=== PATIENT | female | born 1945 | race Caucasian/White ===

== ENCOUNTER 2020-10-16 10:30 | Outpatient (REF) | payer MEDICARE, SELFPAY | END 2020-10-16 10:31 | disposition home or self-care (01) | LOC: HO.LAB 10:30 | PROVIDERS: Visit Provider Internal Medicine | DX: Z20.828 Contact with and (suspected) exposure to other viral communicable diseases (principal) | CPT/HCPCS: C9803; U0003 ==

== ENCOUNTER 2022-08-20 12:48 | Outpatient (REF) | payer MEDICARE, SELFPAY ==
--- NOTE | ~2022-08-20 | XR_ITS ---
EXAMINATION: XR CHEST CLINICAL INFORMATION: Dyspnea on exertion COMPARISON: Previous chest x-ray April [address] November 2018 TECHNIQUE: 2 views of the chest were obtained. FINDINGS: The cardiac and mediastinal contours are normal. There are symmetric nodular densities at both lung bases probably representing nipple shadows. The lungs are otherwise clear. No pleural effusion or pneumothorax. There are degenerative changes of the spine. XR/XR chest 2V IMPRESSION: Nodular densities at both lung bases probably representing nipple shadows. No evidence for acute disease in the chest.
== END 2022-08-20 12:49 | disposition home or self-care (01) ==
LOC: HO.XRAY 12:48
PROVIDERS: PCP Family Medicine; Visit Provider Family Medicine
DX: R06.09 Other forms of dyspnea (principal)
CPT/HCPCS: 71046

== ENCOUNTER 2022-08-26 09:12 | Outpatient (REF) | payer MEDICARE, SELFPAY ==
[2022-08-26 10:14] LABS: Appearance Urine Cloudy; Color Urine Yellow; Glucose Urine UA Negative (Negative); Leukocyte Esterase Urine Negative (Negative); Nitrite Urine Negative (Negative); PH 6.5 (5.0-9.0); Specific Gravity - Urine 1.015 (1.005-1.025); Urine Blood Negative (Negative); Urine Ketones Negative (Negative); Urine Protein Negative (Neg-Trace)
[2022-08-26 10:23] LABS: Bacteria Urine None Seen (None Seen); Hyaline Casts Urine 0-2 /LPF (0-2); RBC Urine 0-2 /HPF (0-2); Squamous Epithelial Cell Urine 0-2 /HPF (0-2); WBC Urine 0-5 /HPF (0-5)
[2022-08-26 10:44] LABS: Creatinine Urine 78.19 mg/dL; Total Protein Urine Random < 7 mg/dL (<12)
[2022-08-26 10:45] LABS: Erythrocyte Sedimentation Rate 6 MM/HR (0-20)
[2022-08-26 11:05] LABS: C Reactive Protein 0.26 mg/dL (< or = 0.50)
[2022-08-27 19:18] LABS: Complement C3 114 mg/dL (83-193)
[2022-08-27 21:42] LABS: Anti DNA DS Antibody 3 IU/mL; Antibody to SS-A Antigen <1.0 NEG AI (<1.0 NEG); Antibody to SS-B Antigen <1.0 NEG AI (<1.0 NEG); SM/Ribonucleoprotein Ab <1.0 NEG AI (<1.0 NEG); Smith Protein <1.0 NEG AI (<1.0 NEG)
[2022-08-28 12:12] LABS: Immunoglobulin G Subclass 1 486 mg/dL (382-929); Immunoglobulin G Subclass 2 314 mg/dL (241-700); Immunoglobulin G Subclass 3 36 mg/dL (22-178); Immunoglobulin G Subclass 4 40.8 mg/dL (4-86); Immunoglobulin G Total 828 mg/dL (600-1540)
[2022-08-28 14:37] LABS: IgA 215 mg/dL (70-320); IgG 934 mg/dL (600-1540); IgM 31 mg/dL (50-300)
[2022-08-31 13:41] LABS: Prot Elec - Albumin 4.5 g/dL (3.8-4.8); Prot Elec - Alpha1 0.3 g/dL (0.2-0.3); Prot Elec - Alpha2 0.8 g/dL (0.5-0.9); Prot Elec - Beta 1 0.5 g/dL (0.4-0.6); Prot Elec - Beta 2 0.3 g/dL (0.2-0.5); Prot Elec - Gamma 0.9 g/dL (0.8-1.7); Prot Elec - Total Protein 7.1 g/dL (6.1-8.1)
[2022-08-31 14:17] LABS: DNAds, Crithidia Antibody Negative (Negative)
[2022-09-03 17:25] LABS: Cryoglobulin, Qual NONE DETECTED ((NDT))
== END 2022-08-26 09:13 | disposition home or self-care (01) ==
LOC: HO.10HDL 09:12
PROVIDERS: Visit Provider Student in an Organized Health Care Education/Training Program
DX: R76.8 Other specified abnormal immunological findings in serum (principal); M35.00 Sjogren syndrome, unspecified; M81.0 Age-related osteoporosis without current pathological fracture; Z79.899 Other long term (current) drug therapy
CPT/HCPCS: 36415; 81001; 82595; 82784; 84156; 84165; 85652; 86140; 86160; 86225; 86235; 86255; 86334; 99202

== ENCOUNTER → 2022-09-03 14:29 | Outpatient (REF) | payer MEDICARE, SELFPAY ==
--- NOTE | 2022-09-03 15:00 | CA_ITS ---
Transthoracic Echocardiogram Patient (Last, First, Middle): Ángela Boland, Gender: Female Date of : 1945 Age: 76 Procedure Date: 09/03/2022 Procedure Type: Transthoracic Echocardiogram Location: OP Height: 162.56 cm Weight: 63.5 kg BSA: 1.68 m2 Heart Rate: 56 bpm Incident Response Consultant: JIMY Referring MD: Stacey May MD Symptoms: R06.09 DYSPNEA ON EXERTION Study Quality: Adequate w contrast ECG Rhythm: Bradycardia Conclusions: - The left ventricular systolic function is normal. The calculated ejection fraction is 70% by biplane method. - No obvious valvular pathology seen on this study. Findings Procedure Information Contrast agent, definity, is being given per protocol without apparent complications. Left Ventricle Normal left ventricular cavity size. There is normal left ventricular wall thickness. The left ventricular systolic function is normal. The calculated ejection fraction is 70% by biplane method. There is no evidence of regional wall motion abnormalities. Evidence suggests grade I (mild) diastolic dysfunction. Right Ventricle Normal right ventricular cavity size and systolic function. Atria Both atria are normal in size. Aortic Valve There is a normal trileaflet aortic valve. There is no aortic valve stenosis. There is no aortic valve regurgitation. Mitral Valve The mitral valve appears normal. There is trace mitral valve regurgitation. There is no mitral valve stenosis. Pulmonic Valve The pulmonic valve is likely normal. Tricuspid Valve Normal tricuspid valve structure. There is trace tricuspid valve regurgitation. There is no evidence of pulmonary hypertension. Great Vessels The asc aorta is normal in size. Venous The inferior vena cava is normal in size and collapses greater than 50% with inspiration. Pericardium/Pleural There is a trivial pericardial effusion. Prior Study Comparison No prior study available for comparison. Recommendations, Care & Conclusions No obvious valvular pathology seen on this study. Measurements 2D Linear Measurements IVSd: 0.73 0.6-0.9/0.6-1.0 cm LVIDd: 4.24 3.9-5.3/4.2-5.9 cm LVIDd Index: 2.52 2.4-3.2/2.2-3.1 cm/m2 LVIDs: 3.17 2.0-3.6 cm LVPWd: 0.57 0.7-1.1 cm LA Diam: 3.00 2.7-3.8/3.0-4.0 cm LAIDs Index: 1.79 1.5-2.3 cm/m2 LV Mass: 97.27 67-162/88-224 g LV Mass Index: 57.90 43-95/49-115 g/m2 LVOT Diam: 2.00 3.0+(-)1.3 cm 2D Systolic Function EF 4C: 65.90 >55% EF 2C: 73.10 >55% EF BiP: 69.80 >55% Mitral Valve MV Pk E: 0.84 MV PK A: 0.82 MV Decel Time: 171.00 E/A: 1.00 E'Lateral: 6.42 E'Medial: 5.33 E/E' Med: 15.80 E/E' Lat: 13.10 PHT: 50.00 MVA PHT: 4.40 Decel [place]: 4.92 Aortic Valve AoV Pk Benjamin: 1.42 AoV Mn Benjamin: 0.96 AoV VTI: 0.33 AoV Pk Grad: 8.00 Aov Mn Grad: 4.00 YEVGENIY Cont.VTI: 2.38 LVOT LVOT Pk Benjamin: 1.09 LVOT Mn Benjamin: 0.74 LVOT VTI: 0.25 LVOT Pk Grad: 5.00 LVOT Mn Grad: 2.00 LVOT Diam: 2.00 LVOT Area: 3.14 Diastolic Function MV Pk E: 0.84 MV Pk A: 0.82 E/A: 1.00 E'Medial: 5.33 E/E' Med: 15.80 E' Laterial: 6.42 E/E' Lat: 13.10 Right Ventricle TAPSE (mm): 19.10 TVS' Benjamin: 9.60 Tricuspid Valve TR Pk Benjamin: 2.23 TR Pk Grad: 20.00 RA Press: 3.00 RVSP: 23.00 Great Vessels Aorta Sinus of Valsalva: 2.70 2.0-3.5 cm Ao Asc: 2.70 2.1-3.4 cm Pulmonary Veins Pulm Vein S/D 1.50 Pulmonary Valve PV Pk Benjamin: 0.80 Peak PV Grad: 3.00 Updated in Other Vendor System with Status of Final Isaac Snyder MD electronically signed on 09/05/2022 9:03:48 AM with status of Final
== END ==
LOC: HO.CARD 14:29
PROVIDERS: PCP Family Medicine; Visit Provider Family Medicine
DX: R06.09 Other forms of dyspnea (principal)
CPT/HCPCS: 93306; Q9957

== ENCOUNTER 2022-10-05 12:42 | Outpatient (REF) | payer MEDICARE, SELFPAY | END 2022-10-05 12:43 | disposition home or self-care (01) | LOC: HO.10HDLNP 12:42 | PROVIDERS: Visit Provider Otolaryngology | DX: B37.9 Candidiasis, unspecified (principal) | CPT/HCPCS: 87102; 87106 ==

== ENCOUNTER → 2022-10-07 08:10 | Outpatient (BNVA) | payer MEDICARE, SELFPAY | PROVIDERS: PCP Family Medicine; Referring Provider Family Medicine; Visit Provider Student in an Organized Health Care Education/Training Program | DX: M35.00 Sjogren syndrome, unspecified (principal); J45.909 Unspecified asthma, uncomplicated | CPT/HCPCS: 99212 ==

== ENCOUNTER 2022-12-23 11:08 | Day surgery (SDC) | payer MEDICARE, SELFPAY ==
[2022-12-23 12:16] VITALS: BMI 24.1
[2022-12-23] MEDS: Lactated Ringers 1,000 ML 50 ML IVCONT (12:30)
[2022-12-23 12:32] VITALS: BP 154/74; PULSE 58; RESP 16; TEMP 36.6; O2SAT 100
--- NOTE | 2022-12-23 14:09 | P.CONAN_ITS ---
HPI - Anesthesia Eval Consult details Narrative: For colonoscopy [facility] Active Problems Active Problems: All Active Problems (Updated 12/22/22 @ 12:48 by Asha Min, RN) MAY positive (Acute) [place] (Acute) Asthma (Acute) Past Medical History Medical History (Updated 12/22/22 @ 12:48 by Asha Min, GRACE) Anxiety GERD (gastroesophageal reflux disease) Hypothyroidism Osteoporosis Narrative: Unremarkable echo 09/2022. Family History Family History Father Adenocarcinoma Mother No problems noted. 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 [employer] Allergies Allergy/AdvReac Type Severity Reaction Status Date / Time codeine [Codeine] AdvReac Unknown Dizziness Verified 12/23/22 12:58 sertraline [Zoloft] AdvReac Unknown bad mental Verified 12/23/22 12:58 reaction Active Medications: Current Medications Lactated Ringer's (Lr) 1,000 mls @ 50 mls/hr IVCONT .Q20H AALIYAH Last Admin: 12/23/22 12:30 Dose: 50 mls/hr Sodium Biphosphate/Sodium Phosphate (Sodium Phosphate,[place]-Dibasic 133 Ml Enema) 133 ml VA ONCE PRN PRN Reason: Poor Colonoscopy Prep Results Home Medications Medication Instructions Recorded Confirmed Last Taken Type alendronate 70 mg tablet 70 mg PO QWEEK 06/12/22 08/26/22 Unknown History cholecalciferol (vitamin D3) 25 25 mcg PO DAILY 06/12/22 08/26/22 Unknown History mcg (1,000 unit) capsule fluoxetine 20 mg capsule 20 mg PO DAILY 06/12/22 08/26/22 Unknown History levothyroxine 75 mcg tablet 75 mcg PO DAILY 06/12/22 08/26/22 Unknown History Exam Exam Date and Time: December 23, 2022 1409 Height,Weight and Vital Signs: Height 5 ft 5 in Weight 65.771 kg Last Vital Signs Temp 97.9 F 12/23/22 12:32 Pulse 58 12/23/22 12:32 Resp 16 12/23/22 12:32 BP 154/74 H 12/23/22 12:32 Pulse Ox 100 12/23/22 12:32 O2 Del Method 12/23/22 12:32 Airway Mallampati Class: I TM Dist: <=3cm Neck ROM: Full Heart: ok Lungs: ok Assessment and Plan Assessment Anesthesia Assessment: Anesthesia Plan Discussed and Chart Reviewed Final Anesthetic Review Family History of Problems with Anesthesia: No History of Problems with Anesthesia: No NPO: Yes ASA Class: III Final Preanesthetic Review: No Changes in Pt Med Stat, Meds/Allgs Chart Reviewed, Consent Obtained/Reviewed and Anes Risks/Benef Reviewed Patient Risk: Intermediate Procedure Risk: Low Anesthetic Plan Anesthetic Plan: MAC: and Agree w/ Assess. and Plan Disposition: Standard PACU
--- NOTE | 2022-12-23 15:19 | P.BOP_ITS ---
Brief Operative Note Date of Service: 12/23/22 Pre-op diagnosis: Screening Post-op diagnosis: other (Polyp) Procedure: Colonoscopy to the cecum and TI with hot snare polypectomy Surgeon: Gavino Gallego Anesthesia: MAC Was an Geographic Area Intelligence Officer used for this Procedure?: No Estimated blood loss (mL): 0 Pathology: other (A. Ascending colon polyp) Condition: stable Disposition: PACU
[2022-12-23 15:21] VITALS: BP 108/56; PULSE 62; RESP 14; TEMP 36.1; O2SAT 98
[2022-12-23 15:36] VITALS: BP 107/65; PULSE 52; RESP 16; TEMP 36.1; O2SAT 98
[2022-12-23 15:51] VITALS: BP 148/67; PULSE 52; RESP 16; TEMP 36.1; O2SAT 100
--- NOTE | 2022-12-24 04:37 | OP_ITS ---
SURGEON: Gavino Gallego MD INDICATIONS: The patient presents for evaluation of colorectal cancer screening. Full consent has been obtained from her for this, including risks of bleeding and perforation. PREOPERATIVE DIAGNOSIS: Colorectal cancer screening. POSTOPERATIVE DIAGNOSIS: PROCEDURE PERFORMED: Colonoscopy to the cecum and terminal ileum with hot snare polypectomy. ESTIMATED BLOOD LOSS: COMPLICATIONS: ANESTHESIA: Medication used, monitored anesthesia care. ASSISTANTS: SPECIMENS: POSTOPERATIVE DIAGNOSES: Colorectal cancer screening, colon polyps, diverticulosis, and internal hemorrhoids. PROCEDURE IN DETAIL: The patient was placed in the left lateral decubitus position. The digital rectal exam revealed no abnormalities. The Olympus video pediatric colonoscope was entered into the rectum and advanced easily to the cecum. Once in the cecum, I did identify a normal-appearing cecal pouch with appendiceal orifice and a normal-appearing ileocecal valve. The terminal ileum was cannulated and appeared normal. The scope was withdrawn back in the colon. The entire cecum and ileocecal valve appeared normal. The scope was slowly withdrawn assessing all mucosal surfaces carefully. Preparation was excellent. In the distal ascending colon or the region of the hepatic flexure, there was approximately 8 to 10 mm polyp which was removed by hot snare polypectomy and recovered by suction. The polypectomy site appeared clean, without any sign of residual polyp nor bleeding. I did not visualize any other polyps, colitis nor angiodysplasia. There was a mild amount of sigmoid diverticulosis. In the rectum, scope was retroflexed, visualizing internal hemorrhoids, but no other pathology. The rectal mucosa appeared normal. The scope was straightened and withdrawn from the patient. She tolerated the procedure well and was returned to the recovery area in stable condition. IMPRESSION: 1. Colon polyps. 2. Diverticulosis. 3. Internal hemorrhoids. PLAN: The results of the pathology will be checked. Given her age and these relatively minimal findings, I do not think she would need any further screening colonoscopies. She will see me on a p.r.n. basis. She was advised not to use any aspirin or NSAIDS for one week. MD MAITE Wei/ANGE / [id number]
== END 2022-12-23 16:15 | disposition home or self-care (01) ==
PROVIDERS: PCP Family Medicine; Visit Provider Internal Medicine
PROC: 0DJD8ZZ Inspection of Lower Intestinal Tract, Via Natural or Artificial Opening Endoscopic (ICD-10-PCS; CPT 45378; principal; 2022-12-23 12:50)
DX: Z12.11 Encounter for screening for malignant neoplasm of colon (principal); K51.40 Inflammatory polyps of colon without complications; K57.30 Diverticulosis of large intestine without perforation or abscess without bleeding; K64.8 Other hemorrhoids; K21.9 Gastro-esophageal reflux disease without esophagitis; E03.9 Hypothyroidism, unspecified; M81.0 Age-related osteoporosis without current pathological fracture; F41.1 Generalized anxiety disorder; Z79.899 Other long term (current) drug therapy; Z88.8 Allergy status to other drugs, medicaments and biological substances
CPT/HCPCS: 45385; 88305; J3010

== ENCOUNTER → 2023-07-08 09:27 | Outpatient (REF) | payer MEDICARE, SELFPAY ==
--- NOTE | 2023-07-08 09:32 | CA_ITS ---
Acquisition Time: 2023-07-08 10:11:53 Total Exercise Time: 00:06:59 Test Indications: SOB Medications: SEE H Protocol: SONNY Max HR: 127 BPM 89% of Pred: 142 BPM Max BP: 136/072 mmHG Max Work Load: 8.4 METS Exercise stress test exercise 6 min 59 sec of Sonny protocol achieving 89% MPHR, with mild to moderate SOB, without chest discomfort, with isolated OVCs and PACs, with normotensive response to exercise, without EKG changes. Test revieed with Dr. Flores. Referred By: Stacey May Overread By: Ivory Lackey
== END ==
LOC: HO.CARD 09:27
PROVIDERS: Visit Provider Family Medicine
DX: R06.09 Other forms of dyspnea (principal)
CPT/HCPCS: 93017

== ENCOUNTER → 2023-07-08 09:32 | Outpatient (BNV) | payer MEDICARE, SELFPAY | PROVIDERS: Visit Provider Nurse Practitioner | DX: R06.02 Shortness of breath (principal) | CPT/HCPCS: 93016; 93018 ==

== ENCOUNTER 2023-07-19 09:26 | Outpatient (AMB) | payer MEDICARE, SELFPAY ==
--- NOTE | 2023-07-19 09:42 | A.OFFVIS_ITS ---
Intake Vital Signs 07/19/23 09:45 Height 5 ft 5 in Weight 148 lb BMI 24.6 BP 110/60 Blood Pressure Location Lt brachial Position Sitting Pulse 84 Pulse Source Pulse Oximeter Pulse Oximetry (%) 97 Oxygen Delivery Method Room Air Intake Visit Reasons: Shortness of breath Intake Note: pt is here as a new patient, shortness of breath with mild exertion, and fatigue. Brought copies of old chest x-rays in past and there was copd there. pt also has hx of thrush. 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 SHE WORKED A [employer] FOR 50 YEARS, BEFORE SHE RETIRED IN 2019 . SHE HAS HISTORY OF UPPER AIRWAY ALLERGIES, FOR THE LAST MANY YEARS, AND HAS BEEN UNDER TREATMENT BY DR. MACO CARPENTER, WHO IS ENT/ASSISTANT FARM OPERATIONS MANAGER. SHE HAS A COPY OF ALLERGY INFORMATION SHEET, FROM MANY YEARS AGO, WHICH SHOWS THAT SHE HAS ALLERGY TO TREES DUST TO DANDER MOLDS, SO SHE HAS BEEN GETTING IMMUNOTHERAPY, FOR THE PAST MANY YEARS. IT HAD BEEN REDUCED TO Q 2 MONTHS BUT NOW WITH INCREASING SYMPTOMS SHE IS GETTING THE INJECTION EVERY 2 WEEKS. HOWEVER THE SYMPTOMS THAT SHE DESCRIBES OR MAINLY SHORTNESS OF BREATH ON EXERTION, FEELING TIRED, MORE SO IN THE PAST 5 YEARS. SHE USED TO BE ABLE TO WALK FAST, AND KEEP PACE WITH HER FRIENDS, BUT NOW SHE CANNOT KEEP PACE, HAS TO SLOW DOWN, BUT STILL CAN WALK 1 OR 2 MILES DAILY. SHE GETS SHORT OF BREATH EASILY WHEN SHE CLIMBS STAIRS OR. WALKS UP HILL SHE DOES NOT EXPERIENCE ANY WHEEZES HOWEVER WHEN SHE WAS CHECKED BY HER PHYSICIANS SHE WAS TOLD THAT SHE HAS SOME EXPIRATORY WHEEZES. ANYWAY SHE HAS NOT USED ANY BRONCHODILATORS. THE ONLY ALLERGY PILL. SHE USES IS LORATADINE 10 MG DAILY SHE HAS NEVER USED MONTELUKAST. SHE HAS ALSO NEVER REQUIRED TO USE ANY BRONCHODILATOR INHALERS. SHE DENIES HISTORY OF ANY FREQUENT RESPIRATORY INFECTIONS. SHE DID NOT EVEN HAVE COVID INFECTION OR PNEUMONIA. SHE IS UP TO DATE FAR VACCINATIONS ARE CONCERNED. ADDITIONAL PAST MEDICAL HISTORY, INCLUDES HYPOTHYROIDISM WHICH IS CONTROLLED WITH THYROID SUPPLEMENT, ACHES AND PAINS AND SHE WAS CHECKED FOR RHEUMATISM WHICH TURNED OUT TO BE NEGATIVE. SHE SHE IS TAKING ALENDRONATE TO PREVENT OSTEOPOROSIS. SHE DOES HAVE HISTORY OF DEPRESSION WHICH IS CONTROLLED WITH FLUOXETINE 40 MG DAILY. [facility] Medical History (Updated 07/19/23 @ 10:50 by Cl Mora MD) Allergic rhinitis Dyspnea on exertion GERD (gastroesophageal reflux disease) Osteoporosis Anxiety Hypothyroidism Surgical History Hx of cataract extraction Family History Father Adenocarcinoma Mother No problems noted. 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 [employer] Review of Systems Const All systems reviewed & are unremarkable except as noted in HPI and below Eyes Reports no additional complaints ENT Reports nasal congestion (MILD OFF AND ON ) Card Denies chest pain, Denies irregular heart rhythm, Denies leg edema and Denies lightheadedness Resp Reports as per HPI GI Reports no additional complaints Reports no additional complaints Musc Reports no additional complaints Skin/Breast Reports system reviewed and no additional complaints, except as documented Neuro Reports no additional complaints Psych Reports depression (CONTROLLED WITH MED) Endo Reports no additional complaints Kole/Lymph Reports no additional complaints Aller/Immun Reports no additional complaints Physical Exam Vital Signs: Last Vital Signs Pulse 84 07/19/23 09:45 BP 110/60 07/19/23 09:45 Pulse Ox 97 07/19/23 09:45 Oxygen Delivery Method Room Air 07/19/23 09:45 BMI result Body Mass Index 24.6 Const General: healthy appearing, comfortable, no acute distress, alert and awake Orientation/consciousness: patient oriented x3 HEENT Head: Yes normal to inspection General nose exam: No nasal polyps present and No nasal discharge present Face and sinus: Yes sinuses nontender Mouth: oropharynx normal Throat: Yes posterior oropharynx normal Eyes General: appearance normal, both eyes and all related structures Neck Neck: Yes normal visual inspection, Yes no lymphadenopathy, Yes trachea midline and Yes no JVD Thyroid: Thyroid normal Chest Chest palpation & inspection: normal inspection of the chest, normal palpation of entire chest wall and no tenderness Resp Other: PERCUSSION NOTE IS RESONANT, BREATH SOUNDS ARE SLIGHTLY DISTANT. AND PROLONGED EXPIRATORY PHASE BUT I DO NOT HEAR ANY WHEEZES RHONCHI OR CREPITATIONS. Cardio Palpation: normal PMI Rate: regular rate Rhythm: regular rhythm Heart sounds: no gallops and no murmurs Peripheral pulses: Peripheral pulses 2+ throughout GI Palpation (GI): Soft to palpation, nontender, No hepatosplenomegaly present and no masses Auscultation: normal bowel sounds Back/Spine/Pelvis Thoracic/Lumbar Spine: thoracic and lumbar spine normal to inspection Skin General skin exam: no rashes or lesions noted Neuro General: patient oriented x3 and no focal motor deficits Cranial nerves: Yes CN's II-XII intact bilaterally Extrem General: Yes normal to inspection, Yes no clubbing, cyanosis or edema and Yes no calf tenderness Psych Speech and movement: Normal speech and movement present Results Reviewed Results Reviewed: CHEST X-RAY REPORT ACTUALLY FROM 2010, IS REVIEWED AND IT SHOWED SOME HYPERINFLATION OF THE LUNGS SUGGESTING PULMONARY EMPHYSEMA OTHERWISE NORMAL. ECHOCARDIOGRAM ON 09/03/2022, AT [facility]. LV EF 70% AND ESSENTIALLY NORMAL ALLERGY INFORMATION SHEET, SHOWS THAT SHE HAS EVIDENCE OF ALLERGY TO WEEDS LIKE REGULAR WEED, TREES LIKE [place], DUST AND DANDER AND MULTIPLE MOLD. Assessment & Plan Assessment & Plan (1) Dyspnea on exertion: Comment: THIS SEEMS TO BE HER MAIN PRESENTING COMPLAINT. SEEMS TO BE MILD, MAY BE DUE TO MILD DEGREE OF ASTHMA/CHRONIC OBSTRUCTIVE PULMONARY DISEASE. AND ALSO MAY BE DUE TO OTHER NONSPECIFIC AND NON PULMONARY FACTORS . ANYWAY THE SYMPTOMS ARE MINOR AND SHE DOES NOT NEED ANY ACTIVE INTERVENTION AT THIS TIME. Code(s): R06.09 - Other forms of dyspnea (2) Asthma: Comment: SHE HAS BEEN TOLD BY HER PHYSICIANS, THAT SHE HAD SOME WHEEZING ON AUSCULTATION, SYMPTOMS ARE NOT SUGGESTIVE OF ANY ACUTE ATTACKS OF ASTHMA. SHE MAY HAVE LOW-GRADE BRONCHOSPASTIC COMPONENT. WILL DO A COMPLETE PULMONARY FUNCTION TESTING. Code(s): J45.909 - Unspecified asthma, uncomplicated Qualifiers: Asthma severity: mild Asthma persistence: unspecified Asthma complication type: unspecified Qualified Code(s): J45.909 - Unspecified asthma, uncomplicated (3) Allergic rhinitis: Comment: SHE HAS BEEN TREATED FOR CHRONIC ALLERGIC RHINITIS AND UPPER AIRWAY ALLERGIES FOR THE PAST MANY YEARS, I THINK HER SYMPTOMS ARM MINOR AND WELL CONTROLLED. SHE CONTINUES TO BE ON IMMUNOTHERAPY. MAY USE LORATADINE. 10 MG ONCE A DAY P.R.N. Code(s): J30.9 - Allergic rhinitis, unspecified Orders: Orders PFT pulmonary function test Today J30.9 - Allergic rhinitis, unspecified, J45.909 - Unspecified asthma, uncomplicated, R06.09 - Other forms of dyspnea Coding Level of Care Code New Pt Level 4 (48899) Diagnoses Dyspnea on exertion R06.09 Mild asthma, unspecified whether complicated, unspecified whether persistent J45.909 Asthma severity: mild Asthma persistence: unspecified Asthma complication type: unspecified Allergic rhinitis J30.9
[2023-07-19 09:45] VITALS: BP 110/60; PULSE 84; O2SAT 97; BMI 24.6
== END 2023-07-19 10:23 | disposition home or self-care (01) ==
PROVIDERS: PCP Family Medicine; Visit Provider Internal Medicine
DX: R06.09 Other forms of dyspnea (principal); J45.909 Unspecified asthma, uncomplicated; J30.9 Allergic rhinitis, unspecified
CPT/HCPCS: 99204

== ENCOUNTER → 2023-07-19 09:26 | Outpatient (BNVA) | payer MEDICARE, SELFPAY | PROVIDERS: PCP Family Medicine; Visit Provider Internal Medicine ==

== ENCOUNTER 2023-07-22 09:33 | Emergency (ER) | payer MEDICARE, SELFPAY ==
--- NOTE | ~2023-07-22 | XR_ITS ---
EXAMINATION: XR CHEST CLINICAL INFORMATION: Shortness of breath COMPARISON: 08/20/2022 TECHNIQUE: 2 views of the chest were obtained. FINDINGS: No significant abnormality is noted involving the heart, lungs, mediastinum, bony thorax or soft tissues. XR/XR chest 2V IMPRESSION: Unremarkable examination.
[2023-07-22 09:37] VITALS: BP 106/67; PULSE 92; RESP 19; TEMP 36.6; O2SAT 98; BMI 23.7
--- NOTE | 2023-07-22 09:41 | ECG_ITS ---
Test Reason : sob Blood Pressure : / mmHG Vent. Rate : 090 BPM Atrial Rate : 090 BPM P-R Int : 128 ms QRS Dur : 072 ms QT Int : 332 ms P-R-T Axes : 071 034 055 degrees QTc Int : 406 ms Normal sinus rhythm Normal ECG When compared with ECG of 22-JAN-2010 06:40, Vent. rate has increased BY 36 BPM Referred By: Generic ED Physician Electronically Signed By:TRINA OSHEA
[2023-07-22 09:58] LABS: MANUAL DIFF FLAG NO
[2023-07-22 10:01] LABS: Basophils Percent Auto 0.4 % (0-2); Eosinophils Percent Auto 0.2 % (0-4); Hematocrit 38.4 % (37.0-47.0); Hemoglobin 13.5 g/dl (12.0-16.0); Imm Gran Abs Auto 0.02 X10*3/uL (0.00-0.03); Imm Gran Pct Auto 0.4 % (0.0-0.4); Lymphocytes Absolute Auto 1.1 X10*3/uL (1.2-4.9); Lymphocytes Percent Auto 21.6 % (20-40); Mean Corpuscular HGB Conc 35.2 g/dl (31.0-35.0); Mean Corpuscular Hemoglobin 31.5 pg (27.0-33.0); Mean Corpuscular Volume 89.7 fL (80.0-98.0); Monocytes Absolute Auto 0.4 X10*3/uL (0.1-1.2); Monocytes Percent Auto 7.6 % (2-11); Neutrophils Absolute Auto 3.6 x10*3/uL (2.0-8.3); Neutrophils Percent Auto 69.8 % (45-73); Platelet Count 226 X10*3/uL (160-400); Red Blood Count 4.28 X10*6/uL (4.20-5.50); Red Cell Distribution Width 12.5 % (11.0-16.0); White Blood Count 5.2 X10*3/uL (4.8-10.8)
[2023-07-22 10:15] LABS: Anion Gap 16 (12-20); Blood Urea Nitrogen 10 mg/dL (9-16); Carbon Dioxide 22 mmol/L (22-29); Chloride 94 mmol/L (96-108); Creatinine Clr Calc Pharmacy 46.2; Estimated Glomerular Filt Rate 58; Glucose Random 145 mg/dL (60-115); Potassium 3.8 mmol/L (3.3-5.1); Sodium 128 mmol/L (135-145)
[2023-07-22 10:22] LABS: B Type Natriuretic Peptide 55 pg/mL (<100)
[2023-07-22 10:24] LABS: Troponin-I High Sensitivity 3.5 ng/L (<3.5-17.0)
[2023-07-22 10:33] LABS: COVID-19 Test Negative (Negative); IDNOW Serial# 9DB6401D
== END 2023-07-22 15:16 | disposition left against medical advice (07) ==
PROVIDERS: Emergency Provider Emergency Medicine; PCP Family Medicine
DX: J06.9 Acute upper respiratory infection, unspecified (principal); R06.02 Shortness of breath; Z20.822 Contact with and (suspected) exposure to COVID-19
CPT/HCPCS: 36415; 71046; 80048; 83880; 84484; 85025; 87635; 93005; 99283

== ENCOUNTER 2023-07-22 16:01 | Emergency (ER) | payer MEDICARE, SELFPAY ==
[2023-07-22 16:51] VITALS: BP 178/80; PULSE 84; RESP 18; TEMP 37.2; O2SAT 98; BMI 25.3
--- NOTE | 2023-07-22 16:51 | ED_ITS ---
HPI - General Adult General Chief complaint: Upper Respiratory Symptoms Stated complaint: upper resp symptoms here this am Related Data Home Medications Medication Instructions Recorded Confirmed alendronate 70 mg tablet 70 mg PO QWEEK 06/12/22 08/26/22 cholecalciferol (vitamin D3) 25 25 mcg PO DAILY 06/12/22 08/26/22 mcg (1,000 unit) capsule levothyroxine 75 mcg tablet 75 mcg PO DAILY 06/12/22 08/26/22 fluconazole 100 mg tablet 100 mg PO DAILY 07/19/23 fluoxetine 20 mg capsule 40 mg PO DAILY 07/19/23 nystatin 500,000 unit tablet 1,000,000 unit PO BID 07/19/23 Previous Rx's Medication Instructions Recorded azithromycin 250 mg tablet See Rx Instructions PO .COMPLEX #6 07/23/23 tabs benzonatate 100 mg capsule 100 mg PO TID PRN cough #20 caps 07/23/23 prednisone 20 mg tablet 40 mg (2 x 20 mg) PO DAILY #10 tabs 07/23/23 Allergies Allergy/AdvReac Type Severity Reaction Status Date / Time codeine [Codeine] AdvReac Unknown Dizziness Verified 07/22/23 09:36 sertraline [Zoloft] AdvReac Unknown bad mental Verified 07/22/23 09:36 reaction PMFSH Past Medical History Medical History (Updated 07/25/23 @ 08:04 by Angelic Bray NP) Allergic rhinitis Dyspnea on exertion GERD (gastroesophageal reflux disease) Osteoporosis Anxiety Hypothyroidism Surgical History Hx of cataract extraction Family History Family History Father Adenocarcinoma Mother No problems noted. 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 Patient is a 77-year-old female presenting to the emergency department with complaint of nasal congestion and productive cough for 2 days. Reports fever last night of 101.8, took Tylenol for this. Checked in to be seen this morning but left waiting room without completing treatment because she had an appointment to attend. She is returning now for ongoing evaluation. Also complains of sore throat. CXR from this am negative for any acute findings, Covid swab was negative. Will add flu and strep. Hyponatremia noted on labs from this am. Plan: swab for flu and strep Medical Decision Making Lab Data Labs: Lab Results 07/22/23 Range/Units 17:05 Influenza Type A (JUNO) Negative (Negative) Influenza Type B (JUNO) Negative (Negative) Influenza A & B Note See Note S. pyogenes GrpA JUNO Negative (Negative) Discharge Plan Discharge Clinical Impression: Cough Patient Disposition: Left W/O Completing Treatment Prescriptions: No Action azithromycin 250 mg tablet See Rx Instructions .ROUTE .COMPLEX Qty: 6 0RF Rx Instructions: For 250 mg dose pack: take 500 mg today (day 1), then 250 mg for 4 days (days 2-5) prednisone 20 mg tablet 40 mg PO DAILY Qty: 10 0RF benzonatate 100 mg capsule 100 mg PO TID PRN (Reason: cough) Qty: 20 0RF levothyroxine 75 mcg tablet 75 mcg PO DAILY cholecalciferol (vitamin D3) 25 mcg (1,000 unit) capsule 25 mcg PO DAILY alendronate 70 mg tablet 70 mg PO QWEEK fluoxetine 20 mg capsule 40 mg PO DAILY nystatin 500,000 unit tablet 1,000,000 unit PO BID fluconazole 100 mg tablet 100 mg PO DAILY Discharge Date/Time: 07/22/23 21:15
[2023-07-22 17:25] LABS: IDNOW Serial# 08D9AD1C; IDNOW Serial# BCCEAD1C; Influenza A Negative (Negative); Influenza B2 Negative (Negative); Strep A Nucleic Acid Negative (Negative)
== END 2023-07-22 21:15 | disposition left against medical advice (07) ==
PROVIDERS: Registered Nurse Emergency; Emergency Provider Emergency Medicine; PCP Family Medicine
DX: R05.9 Cough, unspecified (principal); J02.9 Acute pharyngitis, unspecified; E87.1 Hypo-osmolality and hyponatremia; Z79.899 Other long term (current) drug therapy; Z20.828 Contact with and (suspected) exposure to other viral communicable diseases
CPT/HCPCS: 36415; 71046; 80048; 83880; 84484; 85025; 87502; 87635; 87651; 93005; 99281; 99283

== ENCOUNTER 2023-07-23 08:48 | Emergency (ER) | payer MEDICARE, SELFPAY ==
[2023-07-23 08:53] VITALS: BP 122/86; PULSE 85; RESP 18; TEMP 37.2; O2SAT 96; BMI 24.2
--- NOTE | 2023-07-23 09:45 | ED_ITS ---
HPI - General Adult General Chief complaint: Upper Respiratory Symptoms Stated complaint: Upper Resp Issues Sore Throat Etc Time Seen by Provider: 07/23/23 08:53 Source: patient Mode of arrival: ambulatory Limitations: no limitations History of Present Illness HPI narrative: Patient is a 77-year-old female with history of asthma and allergic rhinitis presenting to the emergency department with complaint of nasal congestion, productive cough and shortness of breath with exertion for the past 3 days. Reports fever 2 nights ago of 101.8 for which she took Tylenol, denies any fever since. Patient had presented to the emergency department yesterday for same symptoms but left from the waiting room due to wait time. She also reports a sore throat and decreased appetite, decreased p.o. intake. Reports some chest pain during coughing episodes. MD complaint: Cough Onset (ago): day(s) Location: chest Severity: moderate Pain Consistency: intermittent (Only with cough) Relieving factors: none Exacerbating factors: none Associated symptoms: cough, fever/chills and other (Sore throat, decreased appetite) Treatments prior to arrival: other (Tylenol) Related Data Home Medications Medication Instructions Recorded Confirmed alendronate 70 mg tablet 70 mg PO QWEEK 06/12/22 08/26/22 cholecalciferol (vitamin D3) 25 25 mcg PO DAILY 06/12/22 08/26/22 mcg (1,000 unit) capsule levothyroxine 75 mcg tablet 75 mcg PO DAILY 06/12/22 08/26/22 fluconazole 100 mg tablet 100 mg PO DAILY 07/19/23 fluoxetine 20 mg capsule 40 mg PO DAILY 07/19/23 nystatin 500,000 unit tablet 1,000,000 unit PO BID 07/19/23 Previous Rx's Medication Instructions Recorded azithromycin 250 mg tablet See Rx Instructions PO .COMPLEX #6 07/23/23 tabs benzonatate 100 mg capsule 100 mg PO TID PRN cough #20 caps 07/23/23 prednisone 20 mg tablet 40 mg (2 x 20 mg) PO DAILY #10 tabs 07/23/23 Allergies Allergy/AdvReac Type Severity Reaction Status Date / Time codeine [Codeine] AdvReac Unknown Dizziness Verified 07/22/23 09:36 sertraline [Zoloft] AdvReac Unknown bad mental Verified 07/22/23 09:36 reaction Review of Systems Review of Systems: As per HPI. Yes all other systems are reviewed and are negative Constitutional: Constitutional: Reports as per HPI PENDING SALE TO [facility] Past Medical History Medical History (Updated 07/23/23 @ 10:01 by Angelic Bray NP) Allergic rhinitis Dyspnea on exertion GERD (gastroesophageal reflux disease) Osteoporosis Anxiety Hypothyroidism Surgical History Hx of cataract extraction Family History Family History Father Adenocarcinoma Mother No problems noted. 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 Blood pressure normal. Heart rate normal. Respiratory rate normal. Temperature normal. Oxygen saturation normal. Const General: cooperative, healthy appearing and no acute distress Orientation/consciousness: oriented to person, oriented to place, oriented to time and patient oriented x3 Limitations: no limitations HENMT Head: Yes normocephalic and Yes atraumatic Ears: external ears normal General nose exam: Normal external nose present Face and sinus: Yes face symmetric Mouth: oropharynx normal and moist mucous membranes Throat: Yes posterior oropharynx normal (mild erythema, no edema or exudate), Yes uvula midline and No uvular edema Eyes Pupils: Equal, round and reactive pupils present Neck Neck: Yes normal visual inspection and Yes supple Chest Chest palpation & inspection: normal inspection of the chest and normal palpation of entire chest wall Resp Other: dry cough noted during assessment Effort & Inspection: normal respiratory effort and able to speak in complete sentences Auscultation: clear to auscultation bilaterally and wheezes scattered wheezes Cardio Rate: regular rate Rhythm: regular rhythm Heart sounds: S1 normal heart sound present and S2 normal heart sound present GI Palpation (GI): Soft to palpation and nontender Auscultation: normoactive bowel sounds General: Yes no CVA tenderness Back/Spine/Pelvis Back: no CVA tenderness Skin General skin exam: elasticity normal and turgor normal Neuro General: oriented to person, oriented to place, oriented to time, patient oriented x3, moves all extremities, no focal motor deficits and CN's II-XI intact bilaterally Cranial nerves: Yes Equal, round and reactive pupils present Cognition (Neuro): normal cognition Extrem General: Yes full ROM, Yes no pedal edema and Yes no calf tenderness Psych Mental Status: mental status grossly normal Affect: normal affect Thought process: Normal thought process present Medical Decision Making Medical Decision Making MDM Narrative: Patient is a 77-year-old female with history of asthma and allergic rhinitis presenting to the emergency department with complaint of nasal congestion, productive cough and shortness of breath with exertion for the past 3 days. On exam patient is awake, A+Ox3, VS WNL, afebrile, normal neurological exam without focal deficits, mild erythema to posterior oropharynx, no edema or exudate, lung sounds clear with mild scattered wheezes throughout. Given reported symptoms and physical exam findings, initial differential includes asthma exacerbation, viral URI, COVID, flu, strep pharyngitis. Less likely ACS, CHF. Labs notable for negative troponin, hyponatremia likely due to decreased p.o. intake, BNP of 55, no evidence edema on chest x-ray, on labs drawn in triage from prior visit where patient eloped from the waiting room. X-ray notable for unremarkable chest on prior visit were patient eloped from the waiting room. My interpretation is in agreement with the radiologist's interpretation. Swabs for COVID, flu, strep all negative on prior visit were patient eloped from the waiting room. Feel symptoms likely related to bronchitis/viral URI which is causing acute asthma exacerbation. Will treat patient with course of azithromycin, prednisone, benzonatate. Instructed patient to follow-up with her primary care provider this week. Return precautions discussed at bedside. Patient verbalized understanding of and agreement with plan. Differential Diagnosis Differential Diagnoses: The differential diagnosis associated with the presentation includes As per MDM. Admission/Observation Consideration of admission/observation: Escalation of care including admission/observation considered Lab Data [facility] Lab Attestation statement: I reviewed the patient's lab results. As per MDM, results from yesterday when patient eloped from waiting room Independent Interpretation I performed an independent interpretation of an: Plain X-Ray Interpretation: Unremarkable chest. EKG shows normal sinus rhythm, rate of 90 beats per minute, normal OK and QT intervals, no evidence of STEMI Radiology Impression Discussion of test interpretation with radiology: I have reviewed the radiologist's reading. Radiologist Impression: XR/XR chest 2V IMPRESSION: Unremarkable examination. External Record Review External record reviewed: Inpatient record and Office record Prescription Management I considered prescription management with: Antibiotic and Other Discharge Plan Discharge Clinical Impression: Bronchitis, Viral URI Patient Disposition: Home, Self-Care Instructions: Acute Bronchitis (ED), Viral Syndrome (ED) Additional Instructions: You are being prescribed azithromycin, please complete the full course as prescribed. You are also being prescribed a steroid called prednisone, please take this medication daily with food. You are being prescribed a cough medicine called benzonatate which you can use every 8 hours as needed for cough. Please contact your primary care provider this week for a follow-up appointment. Return to the emergency department if you experience worsening shortness of breath, chest pain, fever 100.4? F or greater, or any other concerning symptoms. Prescriptions: New azithromycin 250 mg tablet See Rx Instructions .ROUTE .COMPLEX Qty: 6 0RF Rx Instructions: For 250 mg dose pack: take 500 mg today (day 1), then 250 mg for 4 days (days 2-5) prednisone 20 mg tablet 40 mg PO DAILY Qty: 10 0RF benzonatate 100 mg capsule 100 mg PO TID PRN (Reason: cough) Qty: 20 0RF No Action levothyroxine 75 mcg tablet 75 mcg PO DAILY cholecalciferol (vitamin D3) 25 mcg (1,000 unit) capsule 25 mcg PO DAILY alendronate 70 mg tablet 70 mg PO QWEEK fluoxetine 20 mg capsule 40 mg PO DAILY nystatin 500,000 unit tablet 1,000,000 unit PO BID fluconazole 100 mg tablet 100 mg PO DAILY
[2023-07-23 10:11] VITALS: BP 113/66; PULSE 80; RESP 18; O2SAT 100
[2023-07-23 10:12] VITALS: O2SAT 100
== END 2023-07-23 10:15 | disposition home or self-care (01) ==
PROVIDERS: Emergency Provider Emergency Medicine Emergency Medical Services; PCP Family Medicine
DX: J20.8 Acute bronchitis due to other specified organisms (principal)
CPT/HCPCS: 99283; 99284

== ENCOUNTER → 2023-08-19 10:00 | Outpatient (BNV) | payer MEDICARE, SELFPAY | PROVIDERS: PCP Family Medicine; Visit Provider Internal Medicine | DX: J45.909 Unspecified asthma, uncomplicated (principal) | CPT/HCPCS: 94060; 94727; 94729 ==

== ENCOUNTER 2023-08-19 10:16 | Outpatient (REF) | payer MEDICARE, SELFPAY ==
--- NOTE | 2023-08-19 | PFT_ITS ---
Forced vital capacity 109%, FEV1 101%, FEV1/FVC ratio is 70. [id number] 75%, MVV 61%. Post bronchodilator therapy, there is some improvement in [id number]. Lung volumes; total lung capacity 92%, residual volume is 77%. Diffusion capacity 62%. CONCLUSION: There is evidence of mild obstructive airway disorder, mainly involving the small airways. There is improvement after bronchodilator therapy. These findings are suggestive of mild bronchial asthma. Clinical correlation recommended. MD MYRIAM Farrell/MODL / [phone]
== END 2023-08-19 10:17 | disposition home or self-care (01) ==
LOC: HO.RESP 10:16
PROVIDERS: PCP Family Medicine; Visit Provider Internal Medicine
DX: J45.909 Unspecified asthma, uncomplicated (principal); R06.09 Other forms of dyspnea
CPT/HCPCS: 94010; 94727; 94729

== ENCOUNTER 2023-09-02 10:34 | Outpatient (AMB) | payer MEDICARE, SELFPAY ==
--- NOTE | 2023-09-02 10:41 | MHC.OFFVIS ---
Intake Vital Signs 09/02/23 10:42 Height 5 ft 5.5 in Weight 148 lb BMI 24.3 BP 120/70 Blood Pressure Location Lt brachial Position Sitting Pulse 78 Pulse Source Pulse Oximeter Pulse Oximetry (%) 98 Oxygen Delivery Method Room Air Intake Visit Reasons: Shortness of breath Intake Note: pt is here for follow up and still has shortness of breath even with small incline and fatigue. Property Disposal Officer Required: No Allergies codeine [Codeine] Adverse Reaction (Unknown, Verified 09/02/23 10:45) Dizziness sertraline [Zoloft] Adverse Reaction (Unknown, Verified 09/02/23 10:45) bad mental reaction PFSH Medical History (Updated 07/26/23 @ 00:00 by Sridhar Daalba) Allergic rhinitis Dyspnea on exertion GERD (gastroesophageal reflux disease) Osteoporosis Anxiety Hypothyroidism Surgical History Hx of cataract extraction Family History Father Adenocarcinoma Mother No problems noted. 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
[2023-09-02 10:42] VITALS: BP 120/70; PULSE 78; O2SAT 98; BMI 24.3
--- NOTE | 2023-09-02 10:56 | MHC.OFFVIS ---
Intake Vital Signs 09/02/23 10:42 Height 5 ft 5.5 in Weight 148 lb BMI 24.3 BP 120/70 Blood Pressure Location Lt brachial Position Sitting Pulse 78 Pulse Source Pulse Oximeter Pulse Oximetry (%) 98 Oxygen Delivery Method Room Air Intake Visit Reasons: Shortness of breath Allergies codeine [Codeine] Adverse Reaction (Unknown, Verified 09/02/23 10:56) Dizziness sertraline [Zoloft] Adverse Reaction (Unknown, Verified 09/02/23 10:56) bad mental reaction Medication List - Last Reconciled 09/02/23 by Cl Mora MD alendronate 70 mg PO QWEEK cetirizine (Zyrtec) 10 mg PO DAILY PRN cholecalciferol (vitamin D3) 25 mcg PO DAILY fluoxetine 40 mg PO DAILY levothyroxine 75 mcg PO DAILY Do you need a note to return to daycare/school/sports/work: No HPI Shortness of breath HPI 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 SHE HAS THE SAME COMPLAINT OF GETTING SHORT OF BREATH WHEN SHE DOES SOME PHYSICAL WORK OR WALKING UP HILL OR CLIMBING STAIRS. SOON SHE STOPS HER SHORTNESS OF BREATH GOES AWAY. SHE HAS VERY LITTLE COUGH, BUT STILL DOES HAVE INTERMITTENT NASAL CONGESTION WITH POSTNASAL DISCHARGE. SHE HAS BEEN TREATED WITH IMMUNOTHERAPY FOR ALLERGIC RHINITIS FOR THE PAST MANY YEARS. SHE HAS BEEN TOLD THAT SHE HAS ALLERGIC BRONCHIAL ASTHMA , WHICH MAY BE PART OF CHRONIC ALLERGIC RHINITIS. HOWEVER SHE HAS NEVER REQUIRED TO USE ANY LONG-ACTING OR SHORT-ACTING BRONCHODILATORS, AND DOES NOT WANT TO USE. [facility] Medical History Allergic rhinitis Dyspnea on exertion GERD (gastroesophageal reflux disease) Osteoporosis Anxiety Hypothyroidism Surgical History Hx of cataract extraction Family History Father Adenocarcinoma Mother No problems noted. 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 of Systems Const All systems reviewed & are unremarkable except as noted in HPI and below Eyes Reports no additional complaints ENT Reports nasal congestion (MILD OFF AND ON ) Card Denies chest pain, Denies irregular heart rhythm, Denies leg edema and Denies lightheadedness Resp Reports as per HPI GI Reports no additional complaints Reports no additional complaints Musc Reports no additional complaints Skin/Breast Reports system reviewed and no additional complaints, except as documented Neuro Reports no additional complaints Psych Reports depression (CONTROLLED WITH MED) Endo Reports no additional complaints Kole/Lymph Reports no additional complaints Aller/Immun Reports no additional complaints Physical Exam Vital Signs: Last Vital Signs Pulse 78 09/02/23 10:42 BP 120/70 09/02/23 10:42 Pulse Ox 98 09/02/23 10:42 Oxygen Delivery Method Room Air 09/02/23 10:42 BMI result Body Mass Index 24.3 Const General: healthy appearing, comfortable, no acute distress, alert and awake Orientation/consciousness: patient oriented x3 HEENT Head: Yes normal to inspection General nose exam: No nasal polyps present and No nasal discharge present Face and sinus: Yes sinuses nontender Mouth: oropharynx normal Throat: Yes posterior oropharynx normal Eyes General: appearance normal, both eyes and all related structures Neck Neck: Yes normal visual inspection, Yes no lymphadenopathy, Yes trachea midline and Yes no JVD Thyroid: Thyroid normal Chest Chest palpation & inspection: normal inspection of the chest, normal palpation of entire chest wall and no tenderness Resp Other: PERCUSSION NOTE IS RESONANT, BREATH SOUNDS ARE SLIGHTLY DISTANT. AND PROLONGED EXPIRATORY PHASE BUT I DO NOT HEAR ANY WHEEZES RHONCHI OR CREPITATIONS. Cardio Palpation: normal PMI Rate: regular rate Rhythm: regular rhythm Heart sounds: no gallops and no murmurs Peripheral pulses: Peripheral pulses 2+ throughout GI Palpation (GI): Soft to palpation, nontender, No hepatosplenomegaly present and no masses Auscultation: normal bowel sounds Back/Spine/Pelvis Thoracic/Lumbar Spine: thoracic and lumbar spine normal to inspection Skin General skin exam: no rashes or lesions noted Neuro General: patient oriented x3 and no focal motor deficits Cranial nerves: Yes CN's II-XII intact bilaterally Extrem General: Yes normal to inspection, Yes no clubbing, cyanosis or edema and Yes no calf tenderness Psych Speech and movement: Normal speech and movement present Results Reviewed Results Reviewed: PULMONARY FUNCTION TEST, THERE IS NO OBSTRUCTIVE AIRWAY DISORDER, HOWEVER ENHANCED RESPONSE TO BRONCHODILATOR THERAPY ( FEF 25-75 INCREASED BY 35 % ) INDICATES MILD REACTIVE AIRWAYS/BRONCHIAL ASTHMA Assessment & Plan Assessment & Plan (1) Allergic rhinitis: Comment: SHE HAS BEEN TREATED FOR CHRONIC ALLERGIC RHINITIS AND UPPER AIRWAY ALLERGIES FOR THE PAST MANY YEARS, I THINK HER SYMPTOMS ARE MINOR AND WELL CONTROLLED. ADVISED TO CONTINUE IMMUNOTHERAPY BEFORE. MAY USE LORATADINE. 10 MG ONCE A DAY P.R.N. Code(s): J30.9 - Allergic rhinitis, unspecified (2) Asthma: Comment: PATIENT HAS POSSIBLE MILD ALLERGIC BRONCHIAL ASTHMA. HER DYSPNEA ON EXERTION MAY BE DUE TO EXERCISE INDUCED BRONCHOSPASM. HOWEVER SHE DOES NOT NEED TO USE ANY MEDICATION. SHE DOES NOT WANT TO HAVE PRESCRIPTION FOR EMILY AGENT . HER DYSPNEA GOES AWAY SOON SHE STOPS WORKING . Code(s): J45.909 - Unspecified asthma, uncomplicated Qualifiers: Asthma severity: mild Asthma persistence: unspecified Asthma complication type: unspecified Qualified Code(s): J45.909 - Unspecified asthma, uncomplicated (3) Dyspnea on exertion: Comment: THIS SEEMS TO BE HER MAIN PRESENTING COMPLAINT. SEEMS TO BE MILD, MAY BE DUE TO MILD DEGREE OF ASTHMA AND ALSO MAY BE DUE TO OTHER NONSPECIFIC AND NON PULMONARY FACTORS . ANYWAY THE SYMPTOMS ARE MINOR AND SHE DOES NOT NEED ANY ACTIVE INTERVENTION AT THIS TIME. Code(s): R06.09 - Other forms of dyspnea Quality Reporting (2019) Adult ([facility] 138/12/23/68) Body Mass Index: 24.3 Coding Level of Care Code Est Pt Level 3 (34227) Diagnoses Allergic rhinitis J30.9 Mild asthma, unspecified whether complicated, unspecified whether persistent J45.909 Asthma severity: mild Asthma persistence: unspecified Asthma complication type: unspecified Dyspnea on exertion R06.09
[2023-09-02 11:04] VITALS: BMI 24.3
== END 2023-09-02 10:57 | disposition home or self-care (01) ==
PROVIDERS: PCP Family Medicine; Visit Provider Internal Medicine
DX: J30.9 Allergic rhinitis, unspecified (principal); J45.909 Unspecified asthma, uncomplicated; R06.09 Other forms of dyspnea
CPT/HCPCS: 99213

== ENCOUNTER → 2023-09-02 10:34 | Outpatient (BNVA) | payer MEDICARE, SELFPAY | PROVIDERS: PCP Family Medicine; Visit Provider Internal Medicine | DX: J45.909 Unspecified asthma, uncomplicated (principal); R06.09 Other forms of dyspnea | CPT/HCPCS: 99212 ==

== ENCOUNTER 2023-10-07 09:39 | Outpatient (AMB) | payer MEDICARE, SELFPAY ==
--- NOTE | 2023-10-07 10:03 | MHC.OFFVIS ---
Intake Vital Signs 10/07/23 10:04 Height 5 ft 5.5 in Weight 147 lb 7.828 oz BMI 24.2 BP 98/80 Blood Pressure Location Lt brachial Position Sitting Pulse 70 Pulse Source Pulse Oximeter Temp 97 F Temp Source Skin Pulse Oximetry (%) 98 Oxygen Delivery Method Room Air Intake Visit Reasons: +ve MAY Intake Note: Pt last seen 10/07/22, presents today for 1 year follow up. Reports taste still feels off, some foods do not taste the same. Retirement Benefits Specialist Required: No Accompanied by: Self / Same As Patient Allergies codeine [Codeine] Adverse Reaction (Unknown, Verified 10/07/23 10:03) Dizziness sertraline [Zoloft] Adverse Reaction (Unknown, Verified 10/07/23 10:03) bad mental reaction Medication List - Last Reconciled 10/07/23 by Rosalino Salas MD alendronate 70 mg PO QWEEK cetirizine (Zyrtec) 10 mg PO DAILY PRN cholecalciferol (vitamin D3) 25 mcg PO DAILY fluoxetine 40 mg PO DAILY levothyroxine 75 mcg PO DAILY HPI HPI Comments History of Present Illness Details This is a 77-year-old female who was initially referred for evaluation of a positive MAY in the setting of dry mouth. Evaluation and Workup were unremarkable. Patient states that her dry mouth seems to have self-resolved. She mentions however that she feels she is not tasting food the same way she had in the past. She was evaluated by manufacturing sales representative and was found to have a mild reversible obstructive disease. Initial history: The This is a 76-year-old female with a past medical history of anxiety, osteoporosis and hypothyroidism who presents for evaluation of dry mouth. The condition started about 3 months ago with relatively abrupt onset of severe mild dryness associated with canker sores that were painful. Patient went to a walk-in clinic 2 months ago and was prescribed viscous lidocaine with some relief. Patient has been using Biotene mouthwash and sips of water which all provide some short-lived relief. She states that her dryness has overall improved as well as the mouth ulcers however she has lost her taste sensation recently. She denies any eye dryness. She denies dysphagia and denies having to drink water with food. She has been having some fatigue. She sleeps about 12 hours at night and can take naps throughout the day. She has generalized morning stiffness for a few minutes. She has bilateral groin pain worse with walking. Denies any joint swelling. She also feels she gets more short of breath recently compared to her baseline. She had an EKG by PCP which was normal as well as a chest x-ray. Patient denies Raynaud's, photosensitivity, , fevers, alopecia, history of miscarriage, DVT or PE. [facility] Medical History Allergic rhinitis Dyspnea on exertion GERD (gastroesophageal reflux disease) Osteoporosis Anxiety Hypothyroidism Surgical History Hx of cataract extraction Family History Father Adenocarcinoma Mother No problems noted. 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 of Systems ENT Denies dry mouth Musc Denies arthralgias and Denies joint swelling Physical Exam Vital Signs: Last Vital Signs Temp 97 F 10/07/23 10:04 Pulse 70 10/07/23 10:04 BP 98/80 10/07/23 10:04 Pulse Ox 98 10/07/23 10:04 Oxygen Delivery Method Room Air 10/07/23 10:04 BMI result Body Mass Index 24.2 Const General: cooperative, healthy appearing, comfortable and no acute distress Nutritional Appearance: average body habitus Orientation/consciousness: patient oriented x3 Limitations: no limitations HEENT Head: Yes normocephalic and Yes atraumatic Mouth: moist mucous membranes Resp Effort & Inspection: normal respiratory effort and able to speak in complete sentences Auscultation: clear to auscultation bilaterally Cardio Rate: regular rate Rhythm: regular rhythm Heart sounds: S1 normal heart sound present and S2 normal heart sound present Neuro General: patient oriented x3 Extrem Other: Normal nailfold capillaroscopy Mild osteoarthritic changes of her hands with Sanju's nodes and squaring of 1st CMC joints No synovitis Results Reviewed Results Reviewed: INTERSTITIAL LUNG DISEASE PANEL 14.3.3 ETA PROTEIN: <0.2 ng/mL <0.2 This test was developed and its analytical performance characteristics have been determined by [facility]. It has not been cleared or approved by FDA. This assay has been validated pursuant to the CLIA regulations and is used for clinical purposes. RHEUMATOID FACTOR: <14 IU/mL <14 CYCLIC CITRULLINATED PEPTIDE (CCP) AB (IGG): <16 Units Reference Range: NEGATIVE: <20 WEAK POSITIVE: 20-39 MODERATE POSITIVE: 40-59 STRONG POSITIVE: >59 WET END HELPER ANTIBODY: <1.0 NEG AI <1.0 NEGATIVE RNA POLYMERASE III AB: <20 Units <20 INTERSTITIAL LUNG DIS, LB RO-52 AB: <11 SI <11 TH/TO AB: <11 SI <11 FIBRILLARIN (U3-snRNP) AB: <11 SI <11 CENTROMERE B AB: <11 SI <11 CENTROMERE A AB: <11 SI <11 MDA5 AB: <11 SI <11 OJ AB: <11 SI <11 EJ AB: <11 SI <11 PL-12 AB: <11 SI <11 PL-7 AB: <11 SI <11 KU AB: <11 SI <11 PM/SCL75 AB: <11 SI <11 PM/AMB444 AB: <11 SI <11 KODI-1 AB: <11 SI <11 SCL-70 AB: <11 SI <11 SSA/SSB/Parada/WET END HELPER/dsDNA/C3/C4 all negative/normal Assessment & Plan Assessment & Plan (1) 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 Comprehensive serology for Sjogren's and overlapping autoimmune rheumatic diseases is negative. Patient has dry mouth seems to have self-resolved. I do not see any signs of an autoimmune rheumatic disease. Follow-up as needed Plan I spent 18 minutes reviewing patient's chart, evaluating patient, counseling patient and documenting in the chart Coding Level of Care Code Est Pt Level 3 (92808) Diagnoses Dry mouth R68.2 Sicca type: dry mouth
[2023-10-07 10:04] VITALS: BP 98/80; PULSE 70; TEMP 36.1; O2SAT 98; BMI 24.2
== END 2023-10-07 10:52 | disposition home or self-care (01) ==
PROVIDERS: PCP Family Medicine; Visit Provider Student in an Organized Health Care Education/Training Program
DX: R68.2 Dry mouth, unspecified (principal)
CPT/HCPCS: 99213

== ENCOUNTER → 2023-10-07 09:39 | Outpatient (BNVA) | payer MEDICARE, SELFPAY | PROVIDERS: PCP Family Medicine; Visit Provider Student in an Organized Health Care Education/Training Program | DX: R68.2 Dry mouth, unspecified (principal) | CPT/HCPCS: 99212 ==

== ENCOUNTER 2024-01-27 10:19 | Emergency (ER) | payer MEDICARE, SELFPAY ==
--- NOTE | ~2024-01-27 | CT_ITS ---
EXAMINATION: CT HEAD WITHOUT CONTRAST CT CERVICAL SPINE WITHOUT CONTRAST CLINICAL INFORMATION: Trauma. COMPARISON: None TECHNIQUE: CT of the head and cervical spine were performed without intravenous contrast. Multiplanar reformats were rendered and reviewed. This CT examination was performed using dose optimization techniques as appropriate, variously including the following: *Automated exposure control *Adjustment of mA and/or kV according to patient size (this includes techniques or standardized protocols for targeted exams where dose is matched to indication/reason for exam; i.e. extremities or head) *Use of iterative reconstruction technique DLP: 917 mGy-cm. FINDINGS: CT head: No intracranial hemorrhage, large infarction, or mass lesion is seen. Bilateral basal ganglia lacunar infarcts. Mild, age-appropriate appropriate diffuse cortical atrophy and chronic bilateral periventricular white matter ischemic change. No extra-axial collection is appreciated. The ventricles are normal in size and configuration without evidence of hydrocephalus. Opacification of a left posterior ethmoid air cell. The mastoid air cells are clear. Mild deviation of the nasal septum toward the left, with a bony spur protruding toward the left. Paradoxical right middle turbinate. Lateral lens extractions. CT cervical spine: The vertebral body heights appear maintained. No cervical spine fracture is seen. Multilevel disc degenerative change, worst at C3-C4. 0.3 cm posterior subluxation of C3 on C4, with reversal the normal cervical lordosis centered at this level. Significant narrowing of the spinal canal at this level, with superimposed posterior central disc protrusion. Suspect right neuroforaminal narrowing. The paraspinal soft tissues appear within normal limits. The partially imaged lung apices appear clear. CT/CT cervical spine wo IV con IMPRESSION: CT head: No acute intracranial finding. CT cervical spine: No cervical spine fracture or traumatic malalignment identified. Significant degenerative changes as detailed above.
[2024-01-27 10:37] VITALS: BP 111/70; PULSE 88; RESP 16; TEMP 36; O2SAT 98; BMI 24.2
[2024-01-27 12:43] VITALS: BP 118/79; PULSE 73; RESP 16; TEMP 37.1; O2SAT 97
--- NOTE | 2024-01-27 12:45 | ED.FALL ---
HPI - Fall General Chief Complaint: Fall Stated Complaint: Fall 01/26/24 hit head Time Seen by Provider: 01/27/24 14:18 Source: patient Mode of arrival: ambulatory Limitations: no limitations History of Present Illness HPI Narrative: 78-year-old female past history of asthma osteoporosis anxiety hypothyroidism patient is which is a tumor she states she has vertigo yesterday and fell hitting her head she denies loss of consciousness she has not on any blood thinners she denies chest pain fever nausea vomiting or diarrhea. Patient was seen in triage and had a CT scan head neck done labs sent. Patient states that she has had multiple physical therapy evaluations this she for some time she states she has never had any neuroimaging in the past. She is followed by primary care doctor and does get relief when she is treated. Yesterday she was cleaning garage when inside turned quickly and had 1 of her worst episodes of vertigo. She did fall and hit her head. She denies loss of consciousness. States she had associated nausea and vomiting she had her prescribed meclizine with relief of symptoms she does not have a headache at this time she feels otherwise well. MD complaint: fall Related Data Home Medications Medication Instructions Recorded Confirmed alendronate 70 mg tablet 70 mg PO QWEEK 06/12/22 08/26/22 cholecalciferol (vitamin D3) 25 25 mcg PO DAILY 06/12/22 08/26/22 mcg (1,000 unit) capsule levothyroxine 75 mcg tablet 75 mcg PO DAILY 06/12/22 08/26/22 fluoxetine 20 mg capsule 40 mg PO DAILY 07/19/23 cetirizine 10 mg tablet (Zyrtec) 10 mg PO DAILY PRN 09/02/23 Allergies Allergy/AdvReac Type Severity Reaction Status Date / Time codeine [Codeine] AdvReac Unknown Dizziness Verified 01/27/24 10:37 sertraline [Zoloft] AdvReac Unknown bad mental Verified 01/27/24 10:37 reaction Review of Systems Review of Systems: Review of systems: General: Patient denies any fever chills recent illness or falls Musculoskeletal: Denies back pain or body aches or other injuries HEENT: denies headache, runny nose, ear pain Respiratory: denies shortness of breath, cough Cardiovascular: no chest pain or palpitations : denies dysuria, frequency Abdomen: no nausea vomiting denies abdominal pain Extremities: no swelling, no pain Skin: no diaphoresis Yes all other systems are reviewed and are negative PMFSH Past Medical History Medical History Allergic rhinitis Dyspnea on exertion GERD (gastroesophageal reflux disease) Osteoporosis Anxiety Hypothyroidism Surgical History Hx of cataract extraction Family History Family History Father Adenocarcinoma Mother No problems noted. 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 Patient is alert and oriented to person place and time. Patient has no dysphagia or dysarthia, denies good vision in all four vision erwin no nystagmus on exam, good strength to upper and lower extremities with normal reflexes to brachioradialis, wrist, patella and achilles. Negative romberg, good finger to nose and heel to warner. General: Well-appearing well-nourished in no signs of distress HEENT: Normocephalic atraumatic Neck: No signs of JVD, no masses no tenderness or lymphadenopathy Cardiovascular: Regular rate and rhythm Respiratory: Clear to auscultation bilaterally Abdomen: Soft nontender no masses Extremities: Normal pedal pulses no signs of edema Skin: Dry warm no rashes Back: No tenderness full ROM Course Course Course Narrative: RME:?78 yo female hx of asthma, allergic rhinitis, and vertigo here for eval of i think i have a brain tumor . reports huge bout of vertigo yesterday causing her to fall to the floor. denies loc. denies thinners. currently in PT for vertigo. not currently taking meclazine via recommendation from physical therapist. unable to see Dr valentine until 02/08/24. denies chest pain, SOB, headache, vision changes. basic labs and imaging ordered. Full HPI, ROS and PE to be performed by the primary ED provider. Medical Decision Making Medical Decision Making [facility] Narrative: Patient underwent labs and CT patient's exam is unremarkable comfortable discharging the patient home. Differential Diagnosis Differential Diagnoses: The differential diagnosis associated with the presentation includes Intracranial hemorrhage cervical spine injury dizziness vertigo electrolyte abnormality anemia Admission/Observation Consideration of admission/observation: Escalation of care including admission/observation considered Lab Data [facility] Lab Attestation statement: I reviewed the patient's lab results. 01/27/24 13:05 01/27/24 13:05 Labs: Lab Results 01/27/24 Range/Units 13:05 WBC 5.1 (4.8-10.8) X10*3/uL RBC 4.28 (4.20-5.50) X10*6/uL Hgb 13.5 (12.0-16.0) g/dl Hct 38.1 (37.0-47.0) % MCV 89.0 (80.0-98.0) fL MCH 31.5 (27.0-33.0) pg MCHC 35.4 H (31.0-35.0) g/dl RDW 12.7 (11.0-16.0) % Plt Count 236 (160-400) X10*3/uL MPV 9.2 L (9.4-12.3) fL Immature Gran % (Auto) 0.2 (0.0-0.4) % Neut % (Auto) 62.3 (45-73) % Lymph % (Auto) 24.8 (20-40) % [place] % (Auto) 11.5 H (2-11) % Eos % (Auto) 0.4 (0-4) % Baso % (Auto) 0.8 (0-2) % Lymph # (Auto) 1.3 (1.2-4.9) X10*3/uL [place] # (Auto) 0.6 (0.1-1.2) X10*3/uL Eos # (Auto) 0.0 (0.0-0.4) X10*3/uL Baso # (Auto) 0.0 (0.0-0.2) X10*3/uL Abs Immat Gran (auto) 0.01 (0.00-0.03) X10*3/uL Absolute Neuts (auto) 3.2 (2.0-8.3) x10*3/uL Absolute Nucleated RBC 0.000 (0.0-0.012) X10*3/uL Nucleated RBC % (auto) 0.0 (0.0-0.2) /100WBC PT 11.0 L (11.1-13.3) SEC INR 0.9 (0.9-1.1) Sodium 133 L (135-145) mmol/L Potassium 4.8 (3.3-5.1) mmol/L Chloride 98 (96-108) mmol/L Carbon Dioxide 28 (22-29) mmol/L Anion Gap 12 (12-20) BUN 21 H (9-16) mg/dL Creatinine 0.96 (0.5-1.4) mg/dL Estim Creat Clear Calc 41.0 Estimated GFR 56 Random Glucose 91 (60-115) mg/dL Calcium 9.7 D (8.4-10.2) mg/dL Magnesium 2.1 (1.6-2.6) mg/dL Total Bilirubin 0.4 (0.0-1.0) mg/dL AST 22 (5-31) U/L ALT 16 (0-31) U/L Alkaline Phosphatase 55 (39-117) U/L Total Protein 7.0 (6.5-8.0) g/dL Albumin 4.2 (3.5-5.0) g/dL Independent Interpretation I performed an independent interpretation of an: CT Scan Radiology Impression Discussion of test interpretation with radiology: I have reviewed the radiologist's reading. Discharge Plan Discharge Clinical Impression: Vertigo, Fall, Head injury Patient Disposition: Home, Self-Care Instructions: Vertigo (DC), Head Injury (ED) Additional Instructions: You were seen today for vertigo and a fall. You had a CT's of your head and neck done as well as labs which were all normal Please call follow-up with your doctor if you have worsening symptoms change in vision double vision trouble with ambulation or any other concerns please do not hesitate to come back to the emergency department Prescriptions: No Action levothyroxine 75 mcg tablet 75 mcg PO DAILY cholecalciferol (vitamin D3) 25 mcg (1,000 unit) capsule 25 mcg PO DAILY alendronate 70 mg tablet 70 mg PO QWEEK fluoxetine 20 mg capsule 40 mg PO DAILY cetirizine [Zyrtec] 10 mg tablet 10 mg PO DAILY PRN
[2024-01-27 13:11] LABS: MANUAL DIFF FLAG NO
[2024-01-27 13:12] LABS: Basophils Percent Auto 0.8 % (0-2); Eosinophils Percent Auto 0.4 % (0-4); Hematocrit 38.1 % (37.0-47.0); Hemoglobin 13.5 g/dl (12.0-16.0); Imm Gran Abs Auto 0.01 X10*3/uL (0.00-0.03); Imm Gran Pct Auto 0.2 % (0.0-0.4); Lymphocytes Absolute Auto 1.3 X10*3/uL (1.2-4.9); Lymphocytes Percent Auto 24.8 % (20-40); Mean Corpuscular HGB Conc 35.4 g/dl (31.0-35.0); Mean Corpuscular Hemoglobin 31.5 pg (27.0-33.0); Mean Platelet Volume 9.2 fL (9.4-12.3); Monocytes Absolute Auto 0.6 X10*3/uL (0.1-1.2); Monocytes Percent Auto 11.5 % (2-11); Neutrophils Absolute Auto 3.2 x10*3/uL (2.0-8.3); Neutrophils Percent Auto 62.3 % (45-73); Platelet Count 236 X10*3/uL (160-400); Red Blood Count 4.28 X10*6/uL (4.20-5.50); Red Cell Distribution Width 12.7 % (11.0-16.0); White Blood Count 5.1 X10*3/uL (4.8-10.8)
[2024-01-27 13:25] LABS: INTERNATIONAL NORM RATIO 0.9 (0.9-1.1)
[2024-01-27 13:27] LABS: Alanine Aminotransferase 16 U/L (0-31); Albumin Level 4.2 g/dL (3.5-5.0); Alkaline Phosphatase 55 U/L (39-117); Anion Gap 12 (12-20); Aspartate Amino Transferase 22 U/L (5-31); Bilirubin Total 0.4 mg/dL (0.0-1.0); Blood Urea Nitrogen 21 mg/dL (9-16); Calcium 9.7 mg/dL (8.4-10.2); Carbon Dioxide 28 mmol/L (22-29); Chloride 98 mmol/L (96-108); Estimated Glomerular Filt Rate 56; Glucose Random 91 mg/dL (60-115); Magnesium 2.1 mg/dL (1.6-2.6); Potassium 4.8 mmol/L (3.3-5.1); Sodium 133 mmol/L (135-145)
[2024-01-27 14:37] VITALS: BP 118/79; PULSE 73; RESP 16; TEMP 37.1; O2SAT 97
== END 2024-01-27 14:42 | disposition home or self-care (01) ==
PROVIDERS: Physician Assistant Medical; Emergency Provider Student in an Organized Health Care Education/Training Program; PCP Family Medicine
DX: S09.90XA Unspecified injury of head, initial encounter (principal); R42 Dizziness and giddiness; J45.909 Unspecified asthma, uncomplicated; W18.30XA Fall on same level, unspecified, initial encounter; Y93.E9 Activity, other interior property and clothing maintenance; Y92.008 Other place in unspecified non-institutional (private) residence as the place of occurrence of the external cause; Y99.9 Unspecified external cause status
CPT/HCPCS: 36415; 70450; 72125; 80053; 83735; 85025; 85610; 99282; 99283; 99284

== ENCOUNTER 2024-02-16 11:21 | Outpatient (AMB) | payer MEDICARE, SELFPAY ==
[2024-02-16 11:24] VITALS: BP 130/74; PULSE 86; O2SAT 98; BMI 24.2
--- NOTE | 2024-02-16 11:24 | MHC.OFFWIV ---
Intake Vital Signs 02/16/24 11:24 Height 5 ft 4 in Weight 141 lb BMI 24.2 BP 130/74 Blood Pressure Location Lt brachial Position Sitting Pulse 86 Pulse Source Pulse Oximeter Pulse Oximetry (%) 98 Oxygen Delivery Method Room Air Intake Visit Reasons: EP ?Thrush or Herpes Intake Note: pt is here for c/o possible thrush, also suspects herpes, and also vertigo Patient Tobacco Use Status: Never used Tobacco Allergies codeine [Codeine] Adverse Reaction (Unknown, Verified 02/16/24 11:25) Dizziness sertraline [Zoloft] Adverse Reaction (Unknown, Verified 02/16/24 11:25) bad mental reaction Do you need a note to return to daycare/school/sports/work: No HPI HPI Comments History of Present Illness Details 78 y/o female patient who presents to [facility] with c/o dry mouth and tongue sores. This is a chronic issue and she is already using mouth wash OTC for this. Reports unable to taste food. [facility] Medical History Allergic rhinitis Dyspnea on exertion GERD (gastroesophageal reflux disease) Osteoporosis Anxiety Hypothyroidism Surgical History Hx of cataract extraction Family History Father Adenocarcinoma Mother No problems noted. 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[employer] Review of Systems Const All systems reviewed & are unremarkable except as noted in HPI and below Physical Exam Vital Signs: Last Vital Signs Pulse 86 02/16/24 11:24 BP 130/74 02/16/24 11:24 Pulse Ox 98 02/16/24 11:24 Oxygen Delivery Method Room Air 02/16/24 11:24 BMI result Body Mass Index 24.2 Const General: comfortable and no acute distress Orientation/consciousness: patient oriented x3 HEENT Head: Yes normocephalic Ears: external ears normal General nose exam: Normal external nose present Face and sinus: Yes sinuses nontender Mouth: Abnormal oral and palatal mucosa present (sores under tongue with dry mouth) Mouth/tongue images: 1. Small red sores on the tongue Throat: Yes uvula midline Neuro General: patient oriented x3 Assessment & Plan Assessment & Plan (1) Tongue sore: Code(s): K14.6 - Glossodynia Plan: - Avoid Acidic and [place] foods - Avoid spicy and hot foods. (2) Dry mouth: Code(s): R68.2 - Dry mouth, unspecified Plan: - F/U with Dentist - OTC mouth wash with no alcohol. Coding Level of Care Code Est Pt Level 3 (90016) Diagnoses Tongue sore K14.6 Dry mouth R68.2
== END 2024-02-16 11:48 | disposition home or self-care (01) ==
PROVIDERS: PCP Family Medicine; Visit Provider Nurse Practitioner Family
DX: K14.6 Glossodynia (principal); R68.2 Dry mouth, unspecified
CPT/HCPCS: 99213

== ENCOUNTER 2024-02-28 16:07 | Outpatient (REF) | payer MEDICARE, SELFPAY ==
--- NOTE | ~2024-02-28 | MR_ITS ---
EXAMINATION: MR BRAIN WITHOUT AND WITH CONTRAST CLINICAL INFORMATION: Evaluate for right-sided acoustic neuroma. Vertigo. COMPARISON: None available. TECHNIQUE: Multiplanar, multisequential imaging was obtained without and with intravenous contrast. Intravenous contrast: Gadavist 6.5 mL. FINDINGS: No diffusion abnormality is seen. Moderate diffuse brain parenchymal volume loss noted with [id number] commensurate ex vacuo prominence of the ventricles. No significant brain parenchymal signal abnormality is seen. No mass effect or midline shift is evident. No extra-axial fluid collections are noted. The brainstem and cerebellum are normal. There is no abnormal parenchymal or leptomeningeal enhancement. The VII and VIII cranial nerve complexes are normal in course and caliber. Fluid signal is preserved within the cochlea, semicircular canals, and vestibule on the high-resolution axial FIESTA sequence. No cerebellopontine angle lesion is noted. There is no abnormal labyrinthine or intracanalicular enhancement on postcontrast imaging. There are [id number] degenerative changes of the temporomandibular joints bilaterally. The craniovertebral junction, marrow signal, and midline structures are normal. The gradient refocused acquisition is normal. The visualized portions of the major intracranial flow voids at the level of the [place] are preserved. The dural venous sinus flow voids are maintained. The mastoid air cells are well aerated. There is focal mucosal thickening in the posterior left ethmoid air cells. There is a retrosubluxation and severe disc space narrowing at the C3-C4 level with a reversal of the normal cervical lordosis and mild impression upon the ventral cord. Mild anterolisthesis and severe facet arthropathy evident at the C2-C3 level. There is also a posterior subluxation and broad-based disc-osteophyte complex at the C4-C5 level. MR/MR head/brain wo/w con IMPRESSION: No retrocochlear pathology. No abnormal enhancement. Generalized brain parenchymal volume loss. Nonspecific focal mucosal thickening in the posterior left ethmoid air cells. Significant degenerative changes of the temporomandibular joints bilaterally. Severe spondylosis from the C3 through the C5 levels with a reversal of the normal cervical lordosis.
[2024-02-28] MEDS: gadobutroL 7.5 ML VIAL IVPUSH (17:01)
== END 2024-02-28 16:08 | disposition home or self-care (01) ==
LOC: HO.MRI 16:07
PROVIDERS: PCP Family Medicine; Visit Provider Otolaryngology
DX: D33.3 Benign neoplasm of cranial nerves (principal)
CPT/HCPCS: 70553; A9585

== ENCOUNTER 2024-03-01 11:00 | Outpatient (RCR) | payer MEDICARE, SELFPAY ==
[2023-12-07 08:41] VITALS: BP 124/66; PULSE 69
== END 2024-12-12 11:38 | disposition home or self-care (01) ==
LOC: HO.PT 11:00
PROVIDERS: PCP Family Medicine; Visit Provider Otolaryngology
DX: H81.90 Unspecified disorder of vestibular function, unspecified ear (principal)
CPT/HCPCS: 95992; 97110; 97112; 97140; 97162

== ENCOUNTER 2024-03-06 10:10 | Outpatient (AMB) | payer MEDICARE, SELFPAY ==
[2024-03-06 10:25] VITALS: BP 120/68; PULSE 76; O2SAT 98; BMI 25.1
--- NOTE | 2024-03-06 10:25 | A.OFFVIS_ITS ---
Vital Signs 03/06/24 10:25 Height 5 ft 4 in Weight 146 lb BMI 25.1 BP 120/68 Blood Pressure Location Lt brachial Position Sitting Pulse 76 Pulse Source Pulse Oximeter Pulse Oximetry (%) 98 Oxygen Delivery Method Room Air Intake Visit Reasons: Shortness of breath Intake Note: pt is here for follow up and states she is having shortness of breath mild exertion, and just bending down will cause short of breath. 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 Being followed for shortness of breath on exertion and mild nasal congestion off and on. She is nonsmoker. Does not have any significant cough or expectoration. Her pulmonary function test in August 2023 was basically normal. She continues to complain of feeling short of breath if she bends down to diamond picker something. Also feels short of breath the 1st thing in the morning when she walks. She does state that a few minutes later her breathing gets better and she can walk around without shortness of breath or difficulty. Lately she has had periodic bouts of vertigo and states that after these episodes she feels more short of breath. She has not needed to use any inhaler. She does have mild intermittent nasal congestion due to allergies and it is under control with use of cetirizine 10 mg on p.r.n. basis [facility], [facility] Medical History Allergic rhinitis Dyspnea on exertion GERD (gastroesophageal reflux disease) Osteoporosis Anxiety Hypothyroidism Surgical History Hx of cataract extraction Family History Father Adenocarcinoma Mother No problems noted. 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[employer] Review of Systems Const All systems reviewed & are unremarkable except as noted in HPI and below Eyes Reports no additional complaints ENT Reports nasal congestion (MILD OFF AND ON ) Card Denies chest pain, Denies irregular heart rhythm, Denies leg edema and Denies lightheadedness Resp Reports as per HPI GI Reports no additional complaints Reports no additional complaints Musc Reports no additional complaints Skin/Breast Reports system reviewed and no additional complaints, except as documented Neuro Reports no additional complaints Psych Reports depression (CONTROLLED WITH MED) Endo Reports no additional complaints Kole/Lymph Reports no additional complaints Aller/Immun Reports no additional complaints Physical Exam Vital Signs: Last Vital Signs Pulse 76 03/06/24 10:25 BP 120/68 03/06/24 10:25 Pulse Ox 98 03/06/24 10:25 Oxygen Delivery Method Room Air 03/06/24 10:25 BMI result Body Mass Index 25.1 Const General: healthy appearing, comfortable, no acute distress, alert and awake Orientation/consciousness: patient oriented x3 HEENT Head: Yes normal to inspection General nose exam: No nasal polyps present and No nasal discharge present Face and sinus: Yes sinuses nontender Mouth: oropharynx normal Throat: Yes posterior oropharynx normal Eyes General: appearance normal, both eyes and all related structures Neck Neck: Yes normal visual inspection, Yes no lymphadenopathy, Yes trachea midline and Yes no JVD Thyroid: Thyroid normal Chest Chest palpation & inspection: normal inspection of the chest, normal palpation of entire chest wall and no tenderness Resp Other: PERCUSSION NOTE IS RESONANT, BREATH SOUNDS ARE SLIGHTLY DISTANT. AND PROLONGED EXPIRATORY PHASE BUT I DO NOT HEAR ANY WHEEZES RHONCHI OR CREPITATIONS. Cardio Palpation: normal PMI Rate: regular rate Rhythm: regular rhythm Heart sounds: no gallops and no murmurs Peripheral pulses: Peripheral pulses 2+ throughout GI Palpation (GI): Soft to palpation, nontender, No hepatosplenomegaly present and no masses Auscultation: normal bowel sounds Back/Spine/Pelvis Thoracic/Lumbar Spine: thoracic and lumbar spine normal to inspection Skin General skin exam: no rashes or lesions noted Neuro General: patient oriented x3 and no focal motor deficits Cranial nerves: Yes CN's II-XII intact bilaterally Extrem General: Yes normal to inspection, Yes no clubbing, cyanosis or edema and Yes no calf tenderness Psych Speech and movement: Normal speech and movement present Assessment & Plan Assessment & Plan (1) Dyspnea on exertion: Comment: THIS SEEMS TO BE HER MAIN PRESENTING COMPLAINT. SEEMS TO BE MILD AND ONLY 1ST THING IN THE MORNING OR IF SHE STARTS WALKING AROUND. AFTER TAKING A FEW DEEP BREATHS IT GETS BETTER HER PULMONARY FUNCTION TEST IN AUGUST 2023 WAS ESSENTIALLY NORMAL. Code(s): R06.09 - Other forms of dyspnea Category: Medical Plan: I DISCUSSED THE RESULTS OF PULMONARY FUNCTION TEST. TOLD HER THAT HER DYSPNEA ON EXERTION IS MINIMAL AND MAY BE SHE NEEDS TO START WALKING AROUND SLOWLY AND THEN MOLDED CANDLES WICKER THE . JUST FOR HER SATISFACTION, I HAVE GIVEN HER INCENTIVE SPIROMETRY DEVICE FROM THE OFFICE AND TOLD HER TO DO DEEP BREATHING EXERCISES 3 TIMES A DAY. SHE IS VERY HAPPY ABOUT THIS. (2) Allergic rhinitis: Comment: SHE HAS BEEN TREATED FOR CHRONIC ALLERGIC RHINITIS AND UPPER AIRWAY ALLERGIES FOR THE PAST MANY YEARS, I THINK HER SYMPTOMS ARE MINOR AND WELL CONTROLLED. Code(s): J30.9 - Allergic rhinitis, unspecified Category: Medical Plan: PATIENT ISADVISED TO CONTINUE IMMUNOTHERAPY BEFORE. BEING FOLLOWED UP BY DR. WRIGHT, THE ENT SPECIALIST. MAY USE LORATADINE. 10 MG ONCE A DAY P.R.N. Coding Level of Care Code Est Pt Level 3 (53435) Diagnoses Dyspnea on exertion R06.09 Allergic rhinitis J30.9
== END 2024-03-06 11:01 | disposition home or self-care (01) ==
PROVIDERS: PCP Family Medicine; Visit Provider Internal Medicine
DX: R06.09 Other forms of dyspnea (principal); J30.9 Allergic rhinitis, unspecified
CPT/HCPCS: 99213

== ENCOUNTER → 2024-03-06 10:10 | Outpatient (BNVA) | payer MEDICARE, SELFPAY | PROVIDERS: PCP Family Medicine; Visit Provider Internal Medicine | DX: R06.09 Other forms of dyspnea (principal); J30.9 Allergic rhinitis, unspecified | CPT/HCPCS: 99212 ==

== ENCOUNTER 2024-04-11 10:00 | Outpatient (RCR) | payer MEDICARE, SELFPAY | END 2024-04-11 13:52 | disposition home or self-care (01) | LOC: HO.PT 10:00 | PROVIDERS: PCP Family Medicine; Visit Provider Family Medicine | DX: M54.50 Low back pain, unspecified (principal); G89.29 Other chronic pain | CPT/HCPCS: 97014; 97110; 97112; 97140; 97161 ==

== ENCOUNTER 2024-05-08 11:58 | Outpatient (REF) | payer MEDICARE, SELFPAY | END 2024-05-08 11:59 | disposition home or self-care (01) | LOC: HO.LNP 11:58 | PROVIDERS: Visit Provider Otolaryngology | DX: B37.0 Candidal stomatitis (principal) | CPT/HCPCS: 87102; 87107 ==

== ENCOUNTER 2024-06-07 10:00 | Outpatient (RCR) | payer MEDICARE, SELFPAY | END 2024-07-14 10:54 | disposition home or self-care (01) | LOC: HO.PT 10:00 | PROVIDERS: PCP Family Medicine; Visit Provider Family Medicine | DX: M54.2 Cervicalgia (principal) | CPT/HCPCS: 95992; 97110; 97140; 97162; 97535 ==

== ENCOUNTER 2024-08-22 14:00 | Outpatient (RCR) | payer MEDICARE, SELFPAY | END 2024-08-22 15:38 | disposition home or self-care (01) | LOC: HO.PT 14:00 | PROVIDERS: PCP Family Medicine; Visit Provider Family Medicine | DX: M54.2 Cervicalgia (principal) | CPT/HCPCS: 97110; 97140; 97161; 97530 ==

== ENCOUNTER 2024-09-11 10:25 | Outpatient (AMB) | payer MEDICARE, SELFPAY ==
[2024-09-11 10:26] VITALS: BP 112/66; PULSE 80; O2SAT 97; BMI 25.2
--- NOTE | 2024-09-11 10:26 | A.OFFVIS_ITS ---
Vital Signs 09/11/24 10:26 Height 5 ft 4 in Weight 146 lb 9.718 oz BMI 25.2 BP 112/66 Blood Pressure Location Lt brachial Position Sitting Pulse 80 Pulse Source Doppler Pulse Oximetry (%) 97 Oxygen Delivery Method Room Air Intake Visit Reasons: Shortness of breath Intake Note: Patient is here to follow up on SOB, patient stating feeling better after starting Pepcid prescribed by PCP. Allergies codeine [Codeine] Adverse Reaction (Unknown, Verified 09/11/24 11:06) Dizziness sertraline [Zoloft] Adverse Reaction (Unknown, Verified 09/11/24 11:06) bad mental reaction Medication List - Last Reconciled 09/11/24 by Cl Mora MD alendronate 70 mg PO QWEEK cetirizine (Zyrtec) 10 mg PO DAILY PRN cholecalciferol (vitamin D3) 50 mcg PO DAILY famotidine 40 mg PO DAILY fluoxetine 20 mg PO DAILY levothyroxine 75 mcg PO DAILY HPI HPI Shortness of breath: Details: This 78 years old female is here for her 6 months follow-up. She has been very stable during the last 6 months without any acute infection or change. Still gets short of breath when she starts any physical activity, but after taking rest for 1 minute she can go on without much shortness of breath. Denies chest pain, cough, or wheezing. She comes mainly for reassurance. Coincidently she describes that, she has had GERD symptoms for many years and used to be on Prilosec 20 mg a day. Lately her PCP change it to famotidine 20 mg a day, and after that she feels somewhat better, less shortness of breath. She wanted to review the various tests which have been done for her lungs and heart, and I have reviewed the results of whole the tests. Cardiac-bryan she has had EKG, exercise stress test, as well as echocardiogram which are all reported to be normal. Pulmonary function test was also normal. [facility] Medical History Allergic rhinitis Dyspnea on exertion GERD (gastroesophageal reflux disease) Osteoporosis Anxiety Hypothyroidism Surgical History Hx of cataract extraction Family History Father Adenocarcinoma Mother No problems noted. 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[employer] Review of Systems Const All systems reviewed & are unremarkable except as noted in HPI and below Eyes Reports no additional complaints ENT Reports nasal congestion (MILD OFF AND ON ) Card Denies chest pain, Denies irregular heart rhythm, Denies leg edema and Denies lightheadedness Resp Reports as per HPI GI Reports no additional complaints Reports no additional complaints Musc Reports no additional complaints Skin/Breast Reports system reviewed and no additional complaints, except as documented Neuro Reports no additional complaints Psych Reports depression (CONTROLLED WITH MED) Endo Reports no additional complaints Kole/Lymph Reports no additional complaints Aller/Immun Reports no additional complaints Physical Exam Vital Signs: Last Vital Signs Pulse 80 09/11/24 10:26 BP 112/66 09/11/24 10:26 Pulse Ox 97 09/11/24 10:26 Oxygen Delivery Method Room Air 09/11/24 10:26 BMI result Body Mass Index 25.2 Const General: healthy appearing, comfortable, no acute distress, alert and awake Orientation/consciousness: patient oriented x3 HEENT Head: Yes normal to inspection General nose exam: No nasal polyps present and No nasal discharge present Face and sinus: Yes sinuses nontender Mouth: oropharynx normal Throat: Yes posterior oropharynx normal Eyes General: appearance normal, both eyes and all related structures Neck Neck: Yes normal visual inspection, Yes no lymphadenopathy, Yes trachea midline and Yes no JVD Thyroid: Thyroid normal Chest Chest palpation & inspection: normal inspection of the chest, normal palpation of entire chest wall and no tenderness Resp Other: PERCUSSION NOTE IS RESONANT, BREATH SOUNDS ARE SLIGHTLY DISTANT. AND PROLONGED EXPIRATORY PHASE BUT I DO NOT HEAR ANY WHEEZES RHONCHI OR CREPITATIONS. Cardio Palpation: normal PMI Rate: regular rate Rhythm: regular rhythm Heart sounds: no gallops and no murmurs Peripheral pulses: Peripheral pulses 2+ throughout GI Palpation (GI): Soft to palpation, nontender, No hepatosplenomegaly present and no masses Auscultation: normal bowel sounds Back/Spine/Pelvis Thoracic/Lumbar Spine: thoracic and lumbar spine normal to inspection Skin General skin exam: no rashes or lesions noted Neuro General: patient oriented x3 and no focal motor deficits Cranial nerves: Yes CN's II-XII intact bilaterally Extrem General: Yes normal to inspection, Yes no clubbing, cyanosis or edema and Yes no calf tenderness Psych Speech and movement: Normal speech and movement present Assessment & Plan Assessment & Plan (1) Dyspnea on exertion: Comment: THIS SEEMS TO BE HER MAIN PRESENTING COMPLAINT. SEEMS TO BE MILD AND ONLY 1ST THING IN THE MORNING OR IF SHE STARTS WALKING AROUND. AFTER TAKING A FEW DEEP BREATHS IT GETS BETTER HER PULMONARY FUNCTION TEST IN AUGUST 2023 WAS ESSENTIALLY NORMAL. Code(s): R06.09 - Other forms of dyspnea Category: Medical Plan: I think her description of shortness of breath on exertion is mainly subjective. I have explained and reassured her. I reviewed the cardiac workup as well as pulmonary function Still continue to do deep breathing exercises with incentive spirometer 3 times a day. REVISIT Q 1 YEAR IS FINE. (2) Allergic rhinitis: Comment: SHE HAS BEEN TREATED FOR CHRONIC ALLERGIC RHINITIS AND UPPER AIRWAY ALLERGIES FOR THE PAST MANY YEARS, SHE IS UNDER CARE OF DR. WRIGHT AND IS ON IMMUNOTHERAPY INJECTIONS Q 1 MONTH. Code(s): J30.9 - Allergic rhinitis, unspecified Category: Medical Plan: CONTINUE IMMUNOTHERAPY MAY USE ZYRTEC 10 MG ONCE A DAY P.R.N. Coding Level of Care Code Est Pt Level 3 (37888) Diagnoses Dyspnea on exertion R06.09 Allergic rhinitis J30.9
== END 2024-09-11 11:01 | disposition home or self-care (01) ==
PROVIDERS: PCP Family Medicine; Visit Provider Internal Medicine
DX: R06.09 Other forms of dyspnea (principal); J30.9 Allergic rhinitis, unspecified
CPT/HCPCS: 99213

== ENCOUNTER → 2024-09-11 10:25 | Outpatient (BNVA) | payer MEDICARE, SELFPAY | PROVIDERS: PCP Family Medicine; Visit Provider Internal Medicine | DX: R06.02 Shortness of breath (principal); R06.09 Other forms of dyspnea; J30.9 Allergic rhinitis, unspecified | CPT/HCPCS: 99212 ==

== ENCOUNTER 2024-11-20 09:30 | Outpatient (RCR) | payer MEDICARE, SELFPAY ==
[2024-10-23 11:00] VITALS: BP 134/69; PULSE 73
--- NOTE | 2024-10-23 11:48 | MHC.PT.EP ---
[facility] [place] Office [place] Office [place] Office [address] Iris Sutton [address] [phone] F: [phone] F: [phone] F: [phone] F: [phone] Physical Therapy Plan of Care Date of Evaluation: 10/23/24 Date of Surgery: NA Diagnosis: Vertigo Assessment: Ángela is a 78 year old female who is referred to PT for vertigo . She reports of having sudden onset of symptoms of room spinning dizziness about 2 weeks back. Her symptoms started after her chiropracter appointment for neck. She currently reports of having dizziness with rolling in bed, getting out of bed, sit to stand and sudden head turns. Her symptoms lasts for a few seconds. She denies any nausea or vomiting. On PT examination she presented with intact saccades, smooth pursuit, negative VBI, negative head thrust, intact visual tracking and positive for BPPV in [facility]. She lives alone and is independent with all ADLS but moves carefully. She would benefit from skilled PT to address the aforementioned impairments and improve tolerance to functional activities. Frequency and Duration: The patient will be seen 2/week for 4 weeks Short Term Goals: Coat Repair Inspector Goals: Patient to be educated on symptoms and indications to return to therapy when needed min 4 weeks. Pt will be negative for nystagmus or reports of vertigo in all diagnostic positions bilaterally to resolution of BPPV in 4 weeks. Patient to be able to functionally move in all planes and directions without provocation of dizziness to show return to PLOF in 4 weeks. Treatment Plan: Modalities to reduce pain, spasms and effusion. Manual therapy to restore motion and function. Therapeutic exercise to improve strength and flexibility. Neuromuscular re-education for posture and balance. Therapeutic activities to return to functional activities of daily living. Electronically signed by: Lavonne Acosta PT DPT Please sign and return to therapist. Thank you for your referral.
--- NOTE | 2025-01-08 13:05 | MHC.PT.DC ---
[facility] [place] Office [place] Office [place] Office [address] Iris Sutton 140 [facility] [phone] F: [phone] F: [phone] F: [phone] F: [phone] Physical Therapy Discharge Report Diagnosis: Vertigo Date of Surgery: NA Date of Evaluation: 10/23/24 Date of Discharge: 01/08/25 Treatments to Date: 8 Cancellations to Date: 0 No Shows to Date: 0 Discharge Status: Discharge Summary: Ángela has had no symptoms of vertigo in over a month. She is therefore being d/c from PT. Electronically signed by: Lavonne Acosta PT DPT Please sign and return to therapist. Thank you for your referral.
== END 2025-01-08 13:05 | disposition home or self-care (01) ==
LOC: HO.PT 09:30
PROVIDERS: PCP Family Medicine; Visit Provider Otolaryngology
DX: R42 Dizziness and giddiness (principal)
CPT/HCPCS: 95992; 97112; 97161

== ENCOUNTER 2025-04-23 14:55 | Outpatient (REF) | payer MEDICARE, SELFPAY ==
--- NOTE | ~2025-04-23 | XR_ITS ---
EXAMINATION: XR CERVICAL SPINE CLINICAL INFORMATION: NECK PAIN. EVALUATION FOR LISTHESIS COMPARISON: January 27, 2024 CT TECHNIQUE: AP, odontoid , and lateral: Flexion, neutral, and extension view x-rays of the cervical spine. FINDINGS: C2-C3: There is mild disc space narrowing and mild hyperkyphosis without instability. C3-C4: There is severe disc space narrowing, in place gross, osteophytes, and grade 1 retrolisthesis without instability. C4-C5: There is moderate disc space narrowing, endplate degeneration, and marginal osteophytes with grade 1 retrolisthesis without instability. C5-C6: There is mild to moderate disc space narrowing and endplate osteophytes without instability. C6-7: There is moderate disc space narrowing and endplate osteophytes without instability. C7-T1: There is subtle anterolisthesis without disc space narrowing and no instability. There is facet sclerosis. XR/XR cervical spine w flex/ext IMPRESSION: Multilevel degenerative changes and reversal cervical lordosis in the upper C-spine appears chronic and degenerative. Electronically signed by: Mando Banks MD 04/23/2025 03:42 PM EDT
== END 2025-04-23 14:56 | disposition home or self-care (01) ==
LOC: HO.XRAY 14:55
PROVIDERS: PCP Family Medicine; Visit Provider Physician Assistant
DX: M48.02 Spinal stenosis, cervical region (principal)
CPT/HCPCS: 72052

== ENCOUNTER → 2025-04-23 15:08 | Outpatient (BNV) | payer MEDICARE, SELFPAY | PROVIDERS: PCP Family Medicine; Visit Provider Radiology Diagnostic Radiology | DX: M50.30 Other cervical disc degeneration, unspecified cervical region (principal) | CPT/HCPCS: 72052 ==

== ENCOUNTER 2025-05-06 10:11 | Outpatient (REF) | payer MEDICARE, SELFPAY ==
--- NOTE | ~2025-05-06 | MR_ITS ---
CLINICAL HISTORY: NECK PAIN W INTERMITTENT VERTIGO, HYPERREFLEXIA R>L,CENTRAL NARROWING C3 4 MR cervical spine without contrast Comparison: CR/OR/SR - XR CERVICAL SPINE W FLEX/EXT - 04/23/25 15:[address]/SR - CT CERVICAL SPINE WO IV CON - 01/27/24 11:47 EDT Findings: 3 mm anterolisthesis of C2 on C3, degenerative. 3 mm retrolisthesis of C3 on C4, degenerative. 2 mm retrolisthesis of C4 on C5, degenerative 2 mm anterolisthesis of C7 on T1, degenerative. Mild multilevel upper thoracic anterolisthesis, degenerative. There is edema within the dens of C2 which extends into the left lateral mass and posterior arch with associated edema in the adjacent left lateral mass of C1 ( series 5, 7 and 8, images 7 through 16). An osseous lesion is not identified on accompanying radiographs or prior cervical spine, however there is severe joint space narrowing, mild osteophytosis and moderate sclerosis in this region. In T4 there is a 1.1 cm lesion which is hyperintense on STIR and T2 weighted images and is centrally hypointense on the T1 weighted images with a hyperintense rim, Indeterminate. The prevertebral and paraspinous musculature are within normal limits. The cervical cord is normal in size and signal. C2/C3: Uncovering of the disc with a 2 mm disc protrusion. Moderate to severe facet/uncovertebral joint and ligamentum flavum hypertrophy, greatest in the right. Mild central canal stenosis. Mild right and no left foraminal stenosis. C3/C4: Retrolisthesis with associated disc measuring 3 mm. Moderate to severe facet/uncovertebral joint and ligamentum flavum hypertrophy. Moderate central canal stenosis. Severe bilateral foraminal stenosis. C4/C5: Retrolisthesis with associated disc measuring 2-3 mm. Moderate to severe facet/uncovertebral joint and ligamentum flavum hypertrophy. Moderate central canal stenosis. Mild right and severe left foraminal stenosis. C5/C6: 2 mm disc protrusion. Moderate facet/uncovertebral joint and ligamentum flavum hypertrophy. [id number] central canal stenosis. Mild bilateral foraminal stenosis. C6/C7: Uncovering of the disc with a 2 mm disc protrusion. Moderate facet/uncovertebral joint and ligamentum flavum hypertrophy. Mild central canal stenosis. No right and mild left foraminal stenosis. Impression: There is edema in C1 and C2 on the left, detailed above. This is favored to be degenerative. An osseous lesion may also be considered. A posttraumatic etiology is less likely. Repeat CT of the cervical spine may be helpful to exclude an osseous lesion and confirm a degenerative etiology. Multilevel degenerative change, detailed above, which is most prominent at C3/C4 and C4/C5 with moderate central canal stenosis. This document has been electronically signed by: Julia Morales MD on 05/07/2025 22:25:50
== END 2025-05-06 10:12 | disposition home or self-care (01) ==
LOC: HO.MRI 10:11
PROVIDERS: PCP Family Medicine; Visit Provider Physician Assistant
DX: M48.02 Spinal stenosis, cervical region (principal)
CPT/HCPCS: 72141

== ENCOUNTER → 2025-05-06 10:35 | Outpatient (BNV) | payer MEDICARE, SELFPAY | PROVIDERS: PCP Family Medicine; Visit Provider Radiology Diagnostic Radiology | DX: M50.31 Other cervical disc degeneration, high cervical region (principal); M48.02 Spinal stenosis, cervical region; M50.321 Other cervical disc degeneration at C4-C5 level | CPT/HCPCS: 72141 ==

== ENCOUNTER 2025-05-12 10:41 | Emergency (ER) | payer MEDICARE, SELFPAY ==
[2025-05-12 10:43] VITALS: BP 119/84; PULSE 84; RESP 20; TEMP 37; O2SAT 98; BMI 25.1
--- NOTE | 2025-05-12 12:11 | ED.GENADULT ---
HPI - General Adult General Chief complaint: General Medical Stated complaint: vertigo Time Seen by Provider: 05/12/25 11:45 Source: patient, RN notes reviewed and old records reviewed Mode of arrival: ambulatory Limitations: no limitations History of Present Illness ED Provider: Chilango KRISHNAN narrative: 79 old female presents for evaluation of ?I need physical therapy for my vertigo. 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 She gets vestibular physical therapy as needed when her vertigo becomes severe. She reports that she required a treatment on , 2 days ago due to dizziness that is worse with positional changes and turning her head. She reports that she felt better at the time but the following day, yesterday her symptoms returned She does not feel safe at home due to her balance issues Denies any head trauma Denies any fevers, chills, respiratory symptoms Related Data Home Medications ?Medication ?Instructions ?Recorded ?Confirmed alendronate 70 mg tablet 70 mg PO QWEEK 06/12/22 03/06/24 levothyroxine 75 mcg tablet 75 mcg PO DAILY 06/12/22 03/06/24 cetirizine 10 mg tablet (Zyrtec) 10 mg PO DAILY PRN 09/02/23 03/06/24 cholecalciferol (vitamin D3) 25 50 mcg PO DAILY 03/06/24 03/06/24 mcg (1,000 unit) capsule fluoxetine 20 mg capsule 20 mg PO DAILY 03/06/24 03/06/24 famotidine 40 mg tablet 40 mg PO DAILY 09/11/24 Allergies Allergy/AdvReac Type Severity Reaction Status Date / Time codeine (Codeine) AdvReac Unknown Dizziness Verified 05/12/25 10:44 sertraline (Zoloft) AdvReac Unknown bad mental Verified 05/12/25 10:44 reaction Review of Systems Constitutional: Constitutional: Denies body ache(s), Denies chills, Denies fever(s) and Denies headache(s) Eyes: Eyes: Denies blurry vision ENT: Reports vertigo, Reports dizziness and Denies headache(s) Cardiovascular: Cardiovascular: Denies chest pain and Denies dyspnea on exertion Respiratory: Respiratory: Denies cough and Denies dyspnea on exertion Gastrointestinal: Gastrointestinal: Denies abdominal pain, Denies nausea and Denies vomiting Musculoskeletal: Musculoskeletal: Denies back pain Integumentary/Breasts: Skin/Breast: Denies rash Neurologic: Reports vertigo, Reports dizziness and Denies headache(s) [facility] Past Medical History Medical History Allergic rhinitis Dyspnea on exertion GERD (gastroesophageal reflux disease) Osteoporosis Anxiety Hypothyroidism Surgical History Hx of cataract extraction Family History Family History Father Adenocarcinoma Mother No problems noted. 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 Physical Exam ED Vital Signs: Vital Signs - 24 hr 05/12/25 10:43 05/12/25 13:05 05/12/25 13:39 Temperature 98.6 F 98.0 F Pulse Rate 84 68 60 Respiratory Rate 20 17 18 Blood Pressure 119/84 175/95 H 161/83 H Pulse Oximetry 98 98 97 Oxygen Delivery Method Room Air Room Air Room Air BMI result Body Mass Index 25.1 Const General: healthy appearing, comfortable, no acute distress, alert and awake Nutritional Appearance: well nourished Orientation/consciousness: patient oriented x3 HENMT Head: Yes normocephalic and Yes atraumatic Eyes Eyelids: Yes eyelids normal Conjunctivae: conjunctivae normal Sclerae: sclerae normal Corneas: corneas normal Pupils: Equal, round and reactive pupils present EOM: EOMs intact bilaterally Neck Neck: Yes full ROM Resp Effort & Inspection: normal respiratory effort, able to speak in complete sentences and not labored GI Inspection: No distended Palpation (GI): Soft to palpation, not firm, nontender, no guarding and not rigid Skin General skin exam: elasticity normal Neuro General: patient oriented x3 Cranial nerves: Yes CN's II-XII intact bilaterally, Yes Equal, round and reactive pupils present and Yes Bilaterally intact EOM present Cognition (Neuro): normal cognition Motor exam (neuro): 5/5 motor strength present throughout Coordination: [id number] test normal, [id number] test normal and Normal rapid alternating movements of the distal upper extremity present (Neuro) Extrem Other: Moving all extremities well without any obvious deformities Course Reevaluation(s) Reevaluation #1: The patient has been up and ambulating around her ER room without any difficulty. She has not fallen or been lightheaded. There has been numerous attempts to facilitate and expedite the patient's physical therapy evaluation with a vestibular therapy. Unfortunately our in-house with the therapist today is unable to perform vestibular physical therapy, we have no physical therapy coverage for tomorrow. I had the patient evaluated by case management and we also reached to direct [facility] physical therapy who will attempt to get the patient seen on Wednesday. The patient is feels comfortable with discharge home on Wednesday Time: 16:22 Medications Administered Discontinued Medications Generic Name Dose Route Start Last Admin Trade Name Stas PRN Reason Stop Dose Admin Naproxen 500 mg 05/12/25 13:32 05/12/25 13:37 Naproxen 500 Mg Tablet PO 05/12/25 13:33 500 mg ONCE ONE Administration Medical Decision Making Medical Decision Making MDM Narrative: 79 old female presents for evaluation of dizziness which she describes as vertigo. She does have a long history of vertigo. Denies any pain including headache or neck pain. She follows closely with physical therapy at this facility, [facility] in his requesting a vestibular physical therapy treatment. Her neurologic exam is reassuring, she has no neuro deficits, cerebellar exam is reassuring. At the moment I do not feel we need to work the patient up for a posterior stroke as she has a long history of peripheral vertigo. I we will try to reach out 2 courses of therapy and see if they will be able to perform a vestibular physical therapy treatment for the patient and determine disposition at that time. No fever or infectious symptoms to suggest infectious process causing her dizziness. Differential Diagnosis Differential Diagnoses: The differential diagnosis associated with the presentation includes Benign positional vertigo Central vertigo CVA less likely Orthostasis Prescription Management I considered prescription management with: Other (Meclizine, Compazine, and Ativan were considered for treatment of vertigo) The patient declined all medication therapy for vertigo stating ?I have tried all them and they do not work. ? Discharge Plan Discharge Clinical Impression: Vertigo Patient Disposition: Home, Self-Care Instructions: Vertigo (ED) Additional Instructions: Call core physical therapy Wednesday to attempt to expedite your appointment, the direct there has been notified as well as the port patrol officer that you were in the ER for your vertigo. Return for new or worsening symptoms Prescriptions: No Action levothyroxine 75 mcg tablet 75 mcg PO DAILY alendronate 70 mg tablet 70 mg PO QWEEK cholecalciferol (vitamin D3) 25 mcg (1,000 unit) capsule 50 mcg PO DAILY fluoxetine 20 mg capsule 20 mg PO DAILY famotidine 40 mg tablet 40 mg PO DAILY cetirizine [Zyrtec] 10 mg tablet 10 mg PO DAILY PRN Print Language: Belarusian
[2025-05-12 13:05] VITALS: BP 175/95; PULSE 68; RESP 17; TEMP 36.7; O2SAT 98
[2025-05-12 13:39] VITALS: BP 161/83; PULSE 60; RESP 18; O2SAT 97
--- NOTE | 2025-05-12 13:44 | PC.NURSE ---
oob ambulating with steady gait to the bathroom, medicated per dec.
--- NOTE | 2025-05-12 14:11 | MHC.CM.PN ---
CM RECEIVED ED CM CONSULT AND MET WITH PT AT BEDSIDE IN ED. PT LIVES ALONE AND IS FUNCTIONALLY INDEPENDENT. PT ATTENDS VESTIBULAR THERAPY AT [facility] AND STATES HER VERTIGO IS SO BAD SHE WILL NEED TO BE SEEN BY SOMEONE FROM [facility] TODAY OR SHE CAN'T GO HOME. SHE ALSO STATES SHE COULD PROBABLY MANAGE HOME FOR 1 DAY BUT WOULD NEED TO BE GUARANTEED TO BE SEEN WEDNESDAY. PA AWARE. PT DROVE HERSELF HERE AND STATES SHE HAS NO ISSUES DRIVING. PT IS UP AMBULATING TO WITHOUT DIFFICULTY. CM WILL CONTINUE TO FOLLOW FOR PLAN.
--- NOTE | 2025-05-12 14:32 | PC.NURSE ---
message sent to cardiac rehab nurse regarding possibility of setting patient up without outpatient visit for Wednesday , pending response.
--- NOTE | 2025-05-12 15:34 | PC.NURSE ---
Pt industrial organization manager aware that patient is requesting outpatient visit wednesday, stating patient was seen in office recently and was negative for BPPV so twin procedure would not be indicated. ALBERTO Navarro notified
--- NOTE | 2025-05-12 16:00 | PC.NURSE ---
Patient ambulating to bathroom with steady gait, stating unsafe to go home but will go home if she gets a PT apt wednesday, provided with call [facility].
[2025-05-12 16:34] VITALS: BP 161/83; PULSE 60; RESP 18; TEMP 36.6; O2SAT 97
== END 2025-05-12 16:34 | disposition home or self-care (01) ==
PROVIDERS: Emergency Provider Emergency Medicine; PCP Family Medicine
DX: R42 Dizziness and giddiness (principal); E03.9 Hypothyroidism, unspecified; K21.9 Gastro-esophageal reflux disease without esophagitis; Z79.899 Other long term (current) drug therapy
CPT/HCPCS: 99283; 99284

== ENCOUNTER 2025-05-29 14:44 | Outpatient (REF) | payer MEDICARE, SELFPAY ==
--- NOTE | ~2025-05-29 | CT_ITS ---
EXAMINATION: CT CERVICAL SPINE WITH CONTRAST Contrast: 60 mL Omnipaque 350 CLINICAL INFORMATION: Edema like like signal involving the left C1-C2 synovial articulation. COMPARISON: MRI May 06, [address] examination was performed using dose optimization techniques as appropriate, variously including the following: *Automated exposure control *Adjustment of mA and/or kV according to patient size (this includes techniques or standardized protocols for targeted exams where dose is matched to indication/reason for exam; i.e. extremities or head) *Use of iterative reconstruction technique TECHNIQUE: Axial imaging was performed from the base of the skull through T2 with IV contrast. Coronal and sagittal reformatted images were generated from the original axial data set. DLP: 356 mGY*cm FINDINGS: There is reversal cervical lordosis. Contrast demonstrates no pathological enhancement. There is mild intralobular septal thickening in the lung apexes. C1-C2: There is stippled calcification in the transverse ligament posterior to the dens. There are marginal osteophytes the anterior C1-C2 articulation. There is severe narrowing of the left C1-C2 facet with degenerative subchondral plate irregularity and marginal osteophytes. The right side demonstrates severe narrowing along the medial aspect of the articulation. There are osteophytes and subchondral sclerosis as well. C2-C3: There is mild disc space narrowing with posterior dislocation within the disc. There are endplate osteophytes. There is facet arthropathy, severe on the left and mild on the right. C3-C4: There is severe disc space narrowing and endplate irregularity. There is mild grade 1 retrolisthesis. There is uncovertebral osteophytes. There is mild bilateral facet arthropathy. C4-C5: There is moderate to severe disc space narrowing with endplate irregularity and osteophytes. There is mild facet joint space narrowing. C5-C6: Linear calcification is seen in the mildly narrowed disc space. There are degenerative endplate irregularity and endplate osteophytes. There are uncovertebral osteophytes. Facet joints demonstrate mild narrowing. C6-7: There is moderate disc space narrowing with degenerative endplate irregularity and osteophyte involving the endplates and uncovertebral joints. Facet joint spaces are minimally narrowed. C7-T1: There is minimal grade 1 anterolisthesis and mild disc space narrowing. There is severe right and moderate left facet joint space narrowing with sclerosis and osteophytes. CT/CT cervical spine w IV con IMPRESSION: There is moderate reversal of cervical lordosis. This can be related to degenerative changes, positioning, muscle spasm, or posterior soft tissue injury. Signal changes in the left C1-C2 facet on recent MRI is most likely degenerative and reactive in nature. Correlate for signs and symptoms of crowned dens syndrome: There is pyrophosphate deposition in the transverse ligament. 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 Fleischner guidelines were followed. Electronically signed by: Mando Banks MD 05/29/2025 04:28 PM EDT
--- OUTSIDE RECORDS SUMMARY | 2025-05-29 15:31 | XMS_ITS | Encounter Summary ---
Author Organization [facility] Address [address] [place] [address] [place] [address] Phone Care Team Providers Care Airport Screener Name Role Phone Stacey May MD, MPH Primary Care Provid er Bridgette Zhao MD Unavailable [phone] Camille Arroyo MD Unavailable Stacey May MD, MPH Unavailable + [phone] Encounter Details Date Type Department Care Team (Late st Contact Info) Description 05/08/2025 Orders Only [facility] Medicine [address] [place] [address] Unknown, Unknown, Social History Tobacco Use Types Packs/Day Years Used Date Smoking Tobacco: Never Smokeless Tobacco: Never Alcohol Use Standard Drinks/Week Comments Yes 0 (1 standard drink = 0.6 oz pur e alcohol) Occasionally Child or Family Care Answer Date Record ed Do you have problems with on e of the following making it difficult for you to work, study, or receive health care? No 12/29/2023 Education Answer Date Recorded Are you interested in more education? Not on sami e 12/10/2023 Are you concerned about learning? Not on file 12/10/2023 No 12/10/2023 No 12/10/2023 Food Answer Date Recorded Within the past 6 months we worried whether our food would run out before we got money to buy more. Never True 12/29/2023 Within the past 6 months the food we bought just didn't last and we didn't have enough money to get more. Never True Residential Stability Answer Date Recor ded What is your housing situation today? I have te solares 12/29/2023 How many times have you move d in the past 12 months? Zero (I did not move) 12/29/2023 Paying for Meds Answer Date Recorded Do you have trouble paying for medicines? No 12/29/2023 Paying Utility Bills Answer Date Record ed Do you have trouble paying your heating or elect ricity bill? No 12/29/2023 Transportation Answer Date Recorded Has the lack of transportati on kept you from medical appointments or from getting medications? No 12/29/2023 Unemployment Answer Date Recorded Are you currently unemployed or working on a part-time or temporary basis, and looking for work? No 12/08/2021 Digital Access Answer Date Recorded No 12/29/2023 Yes 12/29/2023 Do you have reliable internet access at home? Ye s 12/29/2023 Do you have a device (e.g., phone, tablet, computer) with a working camera? Yes 12/29/2023 Intimate Partner Violence Answer Date R ecorded Denied Basic Needs Not on file 12/29/2023 In the past 12 months have y ou been in a relationship with a person who hurts, threatens, or tries to control you? No 12/29/2023 Worried food would run out Not on file 12/29 In the past 12 months have y ou been in a relationship with a person who hurts, threatens, or tries to control you? No 12/29/2023 Comments Unknown Sex and Gender Information Value Date Recorded Sex Assigned at Female 01/05/2020 9:53 AM EST Legal Sex Female 3:38 PM EST Gender Identity Female 01/05/2020 9:53 AM EST Sexual Orientation Straight 01/05/2020 9: 53 AM EST documented as of this encounter Progress Notes * Iris Benitez MD - 05/08/2025 9:03 AM EDT Ordered by [facility] to support care plan. Degenerative changes seen. Continue care with specialist. Dr. Denis documented in this encounter Plan of Treatment Upcoming Encounters Date Type Department Care Team (Late st Contact Info) Description 06/20/2025 10:40 AM EDT Office Visit [facility] [address] [place] [address] Stacey May MD, MPH [address] [facility] [place] [address] Iris Benitez MD [address] [facility] [address] [place] [address] documented as of this encounter Procedures Procedure Name Priority Date/Time Associated Diagnosis Comments OUTSIDE IMAGING Routine 05/06/2025 9:03 AM EDT documented in this encounter Results * Outside Imaging Report Only (05/06/2025 9:03 AM EDT) us Unknown Unknown IMG XR CHEST Edited Result - Final documented in this encounter Visit Diagnoses Not on filedocumented in this encounter Additional Health Concerns Assessment Noted Time PHQ-2 Depression Total Score: 1 12/29/19 24 10:08 AM EST documented as of this encounter Care Teams Airport Screener Relationship Specialty Start Date End Date Stacey May MD, MPH [address] [facility] [address] [place] [address] PCP - General Family Medicine 10/03/19 Bridgette Zhao MD [address] [place] [address] [place] [address] Otolaryngology 12/08/21 Camille Arroyo MD [address] [place] [address] [place] [address] [email or web address] 12/08/21 Stacey May MD, MPH [address] [place] [address] [email or web address] Insurance Assigned Provider 02/05/24 documented as of this encounter Additional Source Comments The information contained in this document represents components of the legal health record. It is not the complete legal health record.[facility]
[2025-05-29] MEDS: iohexoL 350 MG/ML 100 ML INFUS..BTL IV (16:02)
[2025-05-30 08:09] LABS: Creatinine POC 0.7 mg/dL (0.5-1.4); GFR POC > 60
== END 2025-05-29 14:45 | disposition home or self-care (01) ==
LOC: HO.CT 14:44
PROVIDERS: Visit Provider Physician Assistant
DX: M47.22 Other spondylosis with radiculopathy, cervical region (principal); M48.02 Spinal stenosis, cervical region
CPT/HCPCS: 72126; 82565; Q9967

== ENCOUNTER → 2025-05-29 15:21 | Outpatient (BNV) | payer MEDICARE, SELFPAY | PROVIDERS: Visit Provider Radiology Diagnostic Radiology | DX: M48.02 Spinal stenosis, cervical region (principal) | CPT/HCPCS: 72126 ==

== ENCOUNTER 2025-06-18 10:49 | Outpatient (AMB) | payer MEDICARE, SELFPAY ==
--- OUTSIDE RECORDS SUMMARY | 2025-06-18 11:48 | XMS_ITS | Encounter Summary ---
Author Organization [facility] Address [address] [place] [address] Phone Care Team Providers Care Material Yard Clerk Name Role Phone Stacey May MD, MPH Primary Care Provid er Bridgette Zhao MD Unavailable [phone] Camille Arroyo MD Unavailable [phone] Stacey May MD, MPH Unavailable [phone] Reason for Visit * Reason Onset Date Comments Advice Only 05/25/2025 Encounter Details Date Type Department Care Team (Late st Contact Info) Description 05/25/2025 Telephone [facility] Care [address] [place] [address] Stacey May MD, MPH [address] [facility] [address] [place] [address] [email or web address] Advice Only Social History Tobacco Use Types Packs/Day Years [...] as of this encounter Progress Notes * Marilu Lam - 05/25/2025 10:14 AM EDT PT lvm on the triage line requesting information on who she can see now that is out on asabbatical. Requesting call back to f/u on how to proceed. Central Support Hand Printed Circuit Board Assembler (Please do not reply to this user; this inbox is not monitored.) Thank you. documented in this encounter Plan of Treatment Upcoming Encounters Date Type Department Care Team (Late st Contact Info) Description 06/20/2025 10:40 AM EDT Office Visit [facility] Primary Care [address] [place] [address] Stacey May MD, MPH [address] [place] [address] rIis Benitez MD [address] [place] [address] documented as of this encounter Visit Diagnoses Not on filedocumented in this encounter Additional Health Concerns Assessment Noted Time PHQ-2 Depression Total Score: 1 12/29/19 24 10:08 AM EST documented as of this encounter Care Teams Material Yard Clerk Relationship Specialty Start Date End Date Stacey May MD, MPH [address] [place] [address] PCP - General Family Medicine 10/03/19 Bridgette Zhao MD [address] [place] [address] [place] [address] Otolaryngology 12/08/21 Camille Arroyo MD [address] [place] [address] [place] [address] [email or web address] [email or web address] 12/08/21 Stacey May MD, MPH [address] [place] [address] [email or web address] Insurance Assigned Provider 02/05/24 documented as of this encounter Additional Source Comments The information contained in this document represents components of the legal health record. It is not the complete legal health record.[facility]
== END 2025-06-18 10:54 | disposition home or self-care (01) ==
LOC: HO.HMGAL 10:49
PROVIDERS: PCP Family Medicine; Visit Provider Registered Nurse Emergency
DX: J30.89 Other allergic rhinitis (principal)
CPT/HCPCS: 95117; 95165

== ENCOUNTER 2025-06-26 11:00 | Outpatient (RCR) | payer MEDICARE, SELFPAY ==
[2025-04-17 10:04] VITALS: BP 131/69; PULSE 73
== END 2025-08-17 08:51 | disposition home or self-care (01) ==
LOC: HO.PT 11:00
PROVIDERS: PCP Family Medicine; Visit Provider Family Medicine
DX: M48.02 Spinal stenosis, cervical region (principal); H81.10 Benign paroxysmal vertigo, unspecified ear
CPT/HCPCS: 95992; 97112; 97161

== ENCOUNTER 2025-07-18 11:48 | Outpatient (AMB) | payer MEDICARE, SELFPAY ==
--- OUTSIDE RECORDS SUMMARY | 2025-07-18 15:16 | XMS_ITS | Encounter Summary ---
Author Organization [facility] Address [address] [place] [address] Phone Care Team Providers Care Abstract Searcher Name Role Phone Stacey May MD, MPH Primary Care Provid er Bridgette Zhao MD Unavailable Camille Arroyo MD Unavailable Stacey May MD, MPH Unavailable [phone] Reason for Visit * Reason Onset Date Comments Labs Question 05/28/2025 Encounter Details Date Type Department Care Team (Late st Contact Info) Description 05/28/2025 Telephone [facility] Primary Care [address] [facility] [address] [place] [address] Stacey May MD, MPH [address] [facility] [address] [place] [address] [email or web address] Labs Question Social History Tobacco Use Types Packs/Day Years [...] as of this encounter Progress Notes * Erin Richardson RN - 05/30/2025 1:[address] scan results from yesterday, pt was able to get this completed. No recent labs from us in chart, most recent 04/09/25. * Erin Richardson RN - 05/30/2025 8:47 AM EDT Records request faxed to [facility]. Per message pt had CT scan yesterday. * Marilu Lam - 05/28/2025 4:24 PM EDT PT lvm on the triage line, inquiring if she had a kidney function test, or vitamin d drawn. States that she is having ct scan tomorrow with contrast and they are wondering about the bun and creatinine. Requesting call back. Central Support Curtain Inspector (Please do not reply to this user; this inbox is not monitored.) Thank you. documented in this encounter Plan of Treatment Upcoming Encounters Date Type Department Care Team (Late st Contact Info) Description 08/16/2025 10:00 AM EDT Office Visit [facility] Primary Care [address] [place] [address] [place] [address] Iris Benitez MD [address] [place] [address] 09/20/2025 9:40 AM EST Office Visit [facility] Primary Care [address] [place] [address] [address] [place] [address] Iris Benitez MD [address] [place] [address] 06/21/2026 9:00 AM EDT Office Visit [facility] [place] [facility] Care [address] [facility] [address] [place] [address] Stacey May MD, MPH [address] [address] Iris Benitez MD [address] [address] documented as of this encounter Visit Diagnoses Not on filedocumented in this encounter Additional Health Concerns Assessment Noted Time PHQ-2 Depression Total Score: 1 12/29/19 10:08 AM EST documented as of this encounter Care Teams Abstract Searcher Relationship Specialty Start Date End Date Stacey May MD, MPH [address] [place] [address] PCP - General Family Medicine 10/03/19 Bridgette Zhao MD [address] [place] [address] [address] Otolaryngology 12/08/21 Camille Arroyo MD [address] [place] [address] [address] [email or web address] 12/08/21 Stacey May MD, MPH [address] [place] [address] [email or web address] Insurance Assigned Provider 02/05/24 documented as of this encounter Additional Source Comments The information contained in this document represents components of the legal health record. It is not the complete legal health record.[facility]
--- OUTSIDE RECORDS SUMMARY | 2025-07-18 15:16 | XMS_ITS | Encounter Summary ---
Author Organization [facility] Address [address] [facility] [address] [facility] [address] [place] [address] Phone Care Team Providers Care Quality Control Tech Raw Materials Name Role Phone Stacey May MD, MPH Primary Care Provid er Bridgette Zhao MD Unavailable [phone] Camille Arroyo MD Unavailable Stacey May MD, MPH Unavailable [phone] Reason for Visit * Reason Onset Date Comments Advice Only 05/25/2025 Encounter Details Date Type Department Care Team (Late st Contact Info) Description 05/25/2025 Telephone [facility] Primary Care [address] [facility] [address] [place] [address] Stacey May MD, MPH 15 [facility] [address] [place] [address] [email or web address] Advice Only Social History Tobacco Use Types [...] f/u on how to proceed. Central Support Counter Dish Carrier (Please do not reply to this user; this inbox is not monitored.) Thank you. documented in this encounter Plan of Treatment Upcoming Encounters Date Type Department Care Team (Late st Contact Info) Description 08/16/2025 10:00 AM EDT Office Visit [facility] Primary Care [address] [place] [address] [place] [address] Iris Benitez MD [address] [place] [address] 09/20/2025 9:40 AM EST Office Visit [facility] Primary Care [address] [place] [address] [address] [place] [address] Iris Benitez MD [address] [place] [address] 06/21/2026 9:00 AM EDT Office Visit [facility] Primary Care [address] [place] [address] [address] [place] [address] Stacey May MD, MPH [address] [place] [address] Iris Benitez MD [address] [place] [address] documented as of this encounter Visit Diagnoses Not on filedocumented in this encounter Additional Health Concerns Assessment Noted Time PHQ-2 Depression Total Score: 1 02/28/20 24 10:08 AM EST documented as of this encounter Care Teams Quality Control Tech Raw Materials Relationship Specialty Start Date End Date Stacey May MD, MPH [address] [place] [address] [email or web address] PCP - General Family Medicine 10/03/19 Bridgette Zhao MD [address] [place] [address] [address] Otolaryngology 12/08/21 Camille Arroyo MD [address] [place] [address] [address] [email or web address] 12/08/21 Stacey May MD, MPH [address] [place] [address] [email or web address] Insurance Assigned Provider 02/05/24 documented as of this encounter Additional Source Comments The information contained in this document represents components of the legal health record. It is not the complete legal health record.[facility]
--- OUTSIDE RECORDS SUMMARY | 2025-07-18 15:17 | XMS_ITS | Encounter Summary ---
Author Organization [facility] Address [address] [facility] [address] [place] [address] Phone Care Team Providers Care Mechanical Engineering Intern Name Role Phone Stacey May MD, MPH Primary Care Provid er Bridgette Zhao MD Unavailable [phone] Camille Arroyo MD Unavailable Stacey May MD, MPH Unavailable + [phone] Encounter Details Date Type Department Care Team (Late st Contact Info) Description 02/01/2023 Telephone [facility] Primary Care [address] [facility] [facility] [address] [place] [address] Sendy Hutson, GRACE Social History Tobacco Use Types Packs/Day Years Used Date Smoking Tobacco: Never Smokeless Tobacco: Never Alcohol Use Standard Drinks/Week Comments Yes 0 (1 standard drink = 0.6 oz pur e alcohol) Child or Family Care Answer Date Record ed Do you have problems with on e of the following making it difficult for you to work, study, or receive health care? No 12/08/2021 Education Answer Date Recorded Are you interested in help w ith more adult education (for example, completing high school, GED, job training, learning the [place] language, technical skills, or developing parenting skills)? No 12/08/2021 Food Answer Date Recorded Within the past 6 months we worried whether our food would run out before we got money to buy more. Never True 12/08/2021 Within the past 6 months the food we bought just didn't last and we didn't have enough money to get more. Never True Residential Stability Answer Date Recor ded What is your housing situation today? I have te solares 12/08/2021 How many times have you move d in the past 12 months? Zero (I did not move) 12/08/2021 Paying for Meds Answer Date Recorded Do you have trouble paying for medicines? No 12/08/2021 Paying Utility Bills Answer Date Record ed Do you have trouble paying your heating or elect ricity bill? No 12/08/2021 Transportation Answer Date Recorded Has the lack of transportati on kept you from medical appointments or from getting medications? No 12/08/2021 Unemployment Answer Date Recorded Are you currently unemployed or working on a part-time or temporary basis, and looking for work? No 12/08/2021 Comments Unknown Sex and Gender Information Value Date Recorded Sex Assigned at Female 01/05/2020 9:53 AM EST Legal Sex Female 3:38 PM EST Gender Identity Female 01/05/2020 9:53 AM EST Sexual Orientation Straight 01/05/2020 9: 53 AM EST documented as of this encounter Plan of Treatment Upcoming Encounters Date Type Department Care Team (Late st Contact Info) Description 08/16/2025 10:00 AM EDT Office Visit [facility] Primary Care [address] [place] [address] [place] [address] Iris Benitez MD [address] [place] [address] 09/20/2025 9:40 AM EST Office Visit [facility] Primary Care [address] [facility] [address] [place] [address] Iris Benitez MD [address] [place] [address] 06/21/2026 9:00 AM EDT Office Visit [facility] Primary Care [address] [place] [address] [place] [address] Stacey May MD, MPH [address] [address] [email or web address] Iris Benitez MD [address] [address] [email or web address] documented as of this encounter Visit Diagnoses Not on filedocumented in this encounter Additional Health Concerns Assessment Noted Time PHQ-2 Depression Total Score: 0 12/08/19 22 3:24 PM EST documented as of this encounter Care Teams Mechanical Engineering Intern Relationship Specialty Start Date End Date Stacey May MD, MPH [address] [place] [address] [email or web address] PCP - General Family Medicine 10/03/19 Bridgette Zhao MD [address] [place] [address] [address] Otolaryngology 12/08/21 Camille Arroyo MD [address] [place] [address] [address] [email or web address] 12/08/21 Stacey May MD, MPH [address] [place] [address] [email or web address] Insurance Assigned Provider 02/05/24 documented as of this encounter Additional Source Comments The information contained in this document represents components of the legal health record. It is not the complete legal health record.[facility]
--- OUTSIDE RECORDS SUMMARY | 2025-07-18 15:17 | XMS_ITS | Clinical Summary ---
Author Organization [facility] Address [address] [place] [phone] Phone Care Team Providers Care Lead Ios Developer Name Role Phone Stacey May MD, MPH Primary Care Provid er Bridgette Zhao MD Unavailable Camille Arroyo MD Unavailable [phone] Stacey May MD, MPH Unavailable [phone]- [phone] Allergies Active Allergy Reactions Criticality Noted Date Comments Codeine 04/23/2024 Sertraline 12/08/2021 Medications cholecalciferol (VITAMIN D3) 25 MCG (1,000 unit) tablet Take 2,000 Units by mouth daily. Active allergen immunotherapy every 30 (thirty) days. Every 2 weeks Active escitalopram oxalate (LEXAPRO) 20 MG tablet Take 20 mg by mouth daily. 05/03/20 24 Active fluconazole (DIFLUCAN) 100 MG tablet 05/08/20 24 Active NYSTATIN ORAL Take by mouth. Active levothyroxine (SYNTHROID, LEVOTHROID) 75 MCG tabletIndications: Acquired hypothyroidism TAKE 1 TABLET BY MOUTH EVERY MORNING ON AN EMPTY STOMACH 90 tablet 3 12/06/19 25 Active famotidine (PEPCID) 40 MG tablet TAKE 1 TABLET(40 MG) BY MOUTH DAILY 90 tablet 3 05/31/20 25 Active meloxicam (MOBIC) 7.5 MG tablet Take 15 mg by mouth daily. 05/01/20 25 Active meclizine (ANTIVERT) 25 mg tablet Take 25 mg by mouth daily. Once a day. Sometimes 2 or 3 depending on dizziness. 05/16/20 25 Active loratadine (CLARITIN) 10 mg tablet Take 10 mg by mouth daily. Active alendronate (FOSAMAX) 70 MG tablet Take 70 mg by mouth every 7 days. Take in the morning with a full glass of water, on an empty stomach, and do not take anything else by mouth or lie down for the next 30 min. 025 Discontin ued(No longer taking) cetirizine (ZYRTEC) 10 MG tablet Take 10 mg by mouth as needed. 025 Discontin ued(No longer taking) lisinopril (PRINIVIL,ZESTRIL) 5 MG tabletIndications: Benign essential hypertension Take 1 tablet (5 mg total) by mouth daily. 30 tablet 2 06/20/20 25 025 Discontin ued(No longer taking) Active Problems Problem Noted Date Diagnosed Date Vertigo 06/01/2025 Osteoarthritis of spine with radiculopathy, cerv ical region 06/01/2025 Chronic hyponatremia 07/28/2023 Assessment & Plan (12/29/2023 10:57 AM EST): Seeing endocrinology soon and will discuss further evaluation Assessment & Plan (07/28/2023 1:14 PM EDT): I do wonder if some of her fatigue is related to this. Typically thought to be benign, but would like to have a sense of etiology at least. Will start work up and recommend she address with endocrinology when she next sees them. Dyspnea on exertion 06/11/2023 Assessment & Plan (10/18/2024 2:09 PM EST): Assessment & Plan (07/28/2023 1:14 PM EDT): Normal stress test. Follow up with pulmonology as planned. Assessment & Plan (06/11/2023 3:46 PM EDT): Work-up to date has been negative in terms of pulmonary causes but would agree that a pulmonology evaluation makes sense. I am ordering a stress test today. She had a normal echocardiogram. I am rechecking a few labs. Dry mouth 07/07/2022 Assessment & Plan (07/07/2022 11:06 AM EDT): Concern for Sjogren's due to recent sores within mouth and dry mouth for 2 months. -will obtain CBC, MAY,SS-A antibody IgG, RF, BMP, vitamin B12, Vitamin D and folate, and iron levels -if noted + then would recommend rheum referral. -continue biotene and Act -patient to make f/u appt with dentist due to bump HPV (human papilloma virus) infection 01/05/2020 Overview (12/13/2020): 12/2020- records received- last pap 2017 NILM, no HPV testing done -seems as though last HPV testing was 2012 which was positive -note of a normal 2014 pap although no mention of whether or not HPV testing done Assessment & Plan (01/05/2020 12:33 PM EST): Will have records sent from Dr Khan. Reviewed standard screening recommendations, unless recent HPV positive (and it sounds like it was a while ago), she does not need ongoing screening. Will review records when they are received to confirm this. Has not had any new sexual partners in years. Acquired hypothyroidism 01/05/2020 Assessment & Plan (04/09/2025 11:52 AM EDT): Orders: TSH with reflex; Future Assessment & Plan (10/18/2024 2:09 PM EST): Orders: TSH with reflex; Future Assessment & Plan (12/29/2023 10:57 AM EST): Due for monitoring Assessment & Plan (06/10/2021 10:18 PM EDT): Normal TSH. No dose changes needed Assessment & Plan (07/26/2020 2:06 PM EDT): Level in December 2019 wnl, will recheck before next visit. Assessment & Plan (01/05/2020 12:33 PM EST): Will obtain prior records for recent TSH. Ángela is pretty sure that we checked recently at [facility] and was wnl. She will confirm this and let me know if it has not be within the year. Age-related osteoporosis wit hout current pathological fracture 01/05/2020 Overview (04/16/2020): Dr Arroyo at [facility]. Evista x 7 years. Started alendronate 2019 Assessment & Plan (12/29/2023 10:57 AM EST): Continues to follow with endocrinology Assessment & Plan (12/09/2021 11:25 AM EST): Cont with endocrinology Assessment & Plan (07/26/2020 2:07 PM EDT): Continue with Endocrine Assessment & Plan (01/05/2020 12:29 PM EST): Discussed benefits of treatment, risks around bisphosphonates. She will hear back from Endocrine about Fort[employer] costs and then decide what she would like to proceed with for treatment. Allergic rhinitis 01/05/2020 Overview (01/05/2020): Allergy shots with Dr Zhao at [facility] Assessment & Plan (06/10/2021 10:18 PM EDT): Improving with allergy shots Assessment & Plan (01/05/2020 12:35 PM EST): Continues allergy shots w Dr Zhao. Encouraged to take singulair during spring time if needed. Depression with anxiety 01/05/2020 Assessment & Plan (12/29/2023 10:59 AM EST): I do think she continues to be somewhat depressed. I have seen her more depressed in the past, but I recommend she discuss a switch to a different SSRI with her psych prescriber at their next follow up as she comes off prozac. Assessment & Plan (07/28/2023 1:13 PM EDT): Cont with psych. Assessment & Plan (06/11/2023 3:46 PM EDT): I would encourage her to follow-up with her psychiatric prescriber about medication adjustments Assessment & Plan (12/09/2021 11:25 AM EST): Cont prozac Assessment & Plan (06/10/2021 10:18 PM EDT): Cont prozac 20mg Assessment & Plan (07/26/2020 2:06 PM EDT): Improving on prozac, cont with bilingual school psychologist Assessment & Plan (01/05/2020 12:37 PM EST): Working with psychiatry, trying to get off prozac which is likely very appropriate for her. Encounters Date Type Department Care Team Description 07/05/2025 2:00 PM EDT Office Visit [facility] [address] [place] [address] Iris Benitez MD Balance problem (Primary Dx); Cervicalgia; Orthostatic hypotension 07/04/2025 Telephone [facility] [address] [place] [address] Stacey May MD, MPH Medication reaction 06/20/2025 11:28 AM EDT - 06/20/2025 11:59 PM EDT Hospital Encounter [facility] [address] [place] [address] Iris Benitez MD Discharge Disposition: Home or Self Care 06/20/2025 10:40 AM EDT Office Visit [facility] [address] [place] [address] Stacey May MD, MPH Iris Benitez MD Annual physical exam (Primary Dx); Benign essential hypertension; Malaise and fatigue; Vertigo; Osteoarthritis of spine with radiculopathy, cervical region 06/01/2025 2:20 PM EDT Office Visit [facility] [address] [place] [address] Iris Benitez MD Elevated BP without diagnosis of hypertension (Primary Dx); Osteoarthritis of spine with radiculopathy, cervical region; Vertigo 06/01/2025 Nurse Triage [facility] [address] [place] [address] Erin Morgan PA-C Hypertension (After hours call ) 05/31/2025 Refill [facility] Primary [address] [place] [address] Stacey May MD, MPH Medication Refill 05/30/2025 Orders Only [address] [place] [address] Unknown, Unknown, 05/28/2025 Telephone [facility] Primary [address] [place] [address] Stacey May MD, MPH Labs Question 05/25/[address] [place] [address] Stacey May MD, MPH Advice Only 05/08/2025 Orders Only [address] [place] [address] Unknown, Unknown, 05/02/2025 Telephone [facility] [address] [place] [address] Roxi Sheldon [place] [facility] 04/23/2025 Orders Only [address] [place] [address] Unknown, Unknown, 04/19/2025 Telephone [facility] Primary [address] [place] [address] Stacey May MD, MPH Results from Last 3 Months Immunizations Immunization Administration Dates Next Due COVID-19 (Pre-08/23) Pfizer Vaccine, mRNA, PF ,2020 COVID-19 Pfizer Comirnaty Vaccine 12+ 09/20/2023 Influenza High-Dose Quadrivalent Preservative Fr ee IM 08/19/2022,07/26/2020 Influenza High-Dose Trivalent Preservative Free IM 08/03/2019,08/24/2018 Influenza Quadrivalent Adjuvanted Preservative F ree IM 09/05/2023,08/28/2021 Influenza, Unspecified Formulation 07/02/2022 Pneumococcal conjugate PCV13 10/04/2020 Pneumococcal polysaccharide PPSV23 12/18/2009 Tdap 05/01/2019,12/11/2009 Zoster recombinant 04/18/2021,10/04/2020 Social History Tobacco Use Types Packs/Day Years Used Date Smoking Tobacco: Never Smokeless Tobacco: Never Tobacco Cessation:Counseling Given: Not Answered Alcohol Use Standard Drinks/Week Comments Yes 0 (1 standard drink = 0.6 oz pur e alcohol) Occasionally Child or Family Care Answer Date Record ed Do you have problems with on e of the following making it difficult for you to work, study, or receive health care? No 06/20/2025 Education Answer Date Recorded Are you interested in more education? Not on sami e 12/10/2023 Are you concerned about learning? Not on file 12/10/2023 No 12/10/2023 No 12/10/2023 Food Answer Date Recorded Within the past 6 months we worried whether our food would run out before we got money to buy more. Never True 06/20/2025 Within the past 6 months the food we bought just didn't last and we didn't have enough money to get more. Never True Residential Stability Answer Date Recor ded What is your housing situation today? I have te sing 06/20/2025 How many times have you move d in the past 12 months? Zero (I did not move) 06/20/2025 Paying for Meds Answer Date Recorded Do you have trouble paying for medicines? No 06/20/2025 Paying Utility Bills Answer Date Record ed Do you have trouble paying your heating or elect ricity bill? No 06/20/2025 Transportation Answer Date Recorded Has the lack of transportati on kept you from medical appointments or from getting medications? No 06/20/2025 Unemployment Answer Date Recorded Are you currently unemployed or working on a part-time or temporary basis, and looking for work? No 12/08/2021 Digital Access Answer Date Recorded No 06/20/2025 Yes 06/20/2025 Do you have reliable internet access at home? Ye s 06/20/2025 Do you have a device (e.g., phone, tablet, computer) with a working camera? Yes 06/20/2025 Intimate Partner Violence Answer Date R ecorded Denied Basic Needs Not on file 06/20/2025 In the past 12 months have y ou been in a relationship with a person who hurts, threatens, or tries to control you? No 06/20/2025 Worried food would run out Not on file 06/20 In the past 12 months have y ou been in a relationship with a person who hurts, threatens, or tries to control you? No 06/20/2025 Comments Unknown Sex and Gender Information Value Date Recorded Sex Assigned at Female 01/05/2020 9:53 AM EST Legal Sex Female 3:38 PM EST Gender Identity Female 01/05/2020 9:53 AM EST Sexual Orientation Straight 01/05/2020 9: 53 AM EST Last Filed Vital Signs Vital Sign Reading Time Taken Comments Blood Pressure 116/64 07/05/2025 2:09 PM EDT Pulse 74 07/05/2025 2:09 PM EDT Temperature 36.7 C (98 F) 06/20/2025 10:35 AM EDT Respiratory Rate - - Oxygen Saturation 97% 07/05/2025 2:09 PM EDT Inhaled Oxygen Concentration - - Weight 66.7 kg (147 lb) 06/01/2025 2:07 PM EDT p t reported Height 163.3 cm (5' 4.3 ) 10/18/2024 11:27 AM ES T Body Mass Index 25 10/18/2024 11:27 AM EST Plan of Treatment Upcoming Encounters Date Type Department Care Team (Late st Contact Info) Description 08/16/2025 10:00 AM EDT Office Visit [facility] [address] [place] [address] Iris Benitez MD [address] [place] [phone] [email or web address] 09/20/2025 9:40 AM EST Office Visit [facility] [address] [place] [address] [address] [place] [address] Iris Benitez MD [address] [place] [phone] [email or web address] 06/21/2026 9:00 AM EDT Office Visit [facility] [address] [place] [address] Stacey May MD, MPH [address] [place] [phone] [email or web address] Iris Benitez MD [address] [place] [phone] [email or web address] Health Maintenance Due Date Last Done Comments RSV VACCINE (1 - 1-dose 75+ series) 2019 INFLUENZA VACCINE (#1) 2025 , 08/19/2022, 07/02/2022, Additional history exists COVID-19 VACCINE (2023- season) 2025 09/04/2024, 09/20/2023, 09/02/2022, Additional history exists LIPID PANEL 10/10/2025 10/10/2020 BLOOD PRESSURE 01/02/2026 07/05/2025 TSH LEVEL 04/09/2026 04/09/2025, 10/01, 12/29/2023, Additional history exists DEPRESSION SCREENING 06/20/2026 06/20/2025 Adult Td,Tdap Booster 05/01/2029 05/01/2019, 010 PNEUMOCOCCAL VACCINES (50+ years) Completed 10/04/2020, 12/18/2009 ZOSTER VACCINES Completed 04/18/2021, 10/04/2020 OSTEOPOROSIS SCREENING INITIAL (ONE-TIME) Completed 12/29/2023, 12/29/2023 SMOKING STATUS SCREENING (Once After 26 Yrs) Completed 07/05/2025 HEPATITIS A VACCINES Aged Out No long er eligible based on patient's age to complete this topic HIB VACCINES Aged Out No longer eligi ble based on patient's age to complete this topic MENINGOCOCCAL VACCINES (ACWY) Aged Out No longer eligible based on patient's age to complete this topic MENINGOCOCCAL VACCINES (B) Aged Out N o longer eligible based on patient's age to complete this topic Medical Devices Not on file Procedures Procedure Name Priority Date/Time Associated Diagnosis Comments BASIC METABOLIC PANEL Routine 06/20/2025 11:29 AM EDT Benign essential hypertension CBC AND DIFFERENTIAL Routine 06/20/2025 11:29 AM EDT Malaise and fatigue OUTSIDE CT IMAGING REPORT ONLY Routine 05/29/2025 12:32 PM EDT OUTSIDE IMAGING Routine 05/06/2025 9:03 AM EDT OUTSIDE XR IMAGING REPORT ONLY Routine 04/23/2025 4:28 PM EDT TSH WITH REFLEX Routine 04/09/2025 12:37 PM EDT Acquired hypothyroidism HM DEXA SCAN Routine 12/29/2023 4:50 PM EST LIPID PANEL Routine 10/10/2020 9:08 AM EST Screening cholesterol level from Last 3 Months or Most Recently Relevant to Health Maintenance Results * (ABNORMAL) CBC and differential (06/20/2025 11:29 AM EDT) WBC 4.39 4.00 - 11.00 K/uL [facility] RBC 4.46 4.00 - 5.20 M/uL [facility] HGB 14.0 12.0 - 16.0 g/dL [facility] HCT 40.6 36.0 - 46.0 % [facility] PLT 288 150 - 450 K/uL [facility] MCV 91.0 80.0 - 100.0 fL [facility] MCH 31.4(H) 27.0 - 31.0 pg [facility] MCHC 34.5 32.0 - 36.0 g/dL [facility] RDW 12.5 11.5 - 14.5 % [facility] MPV 9.7 8.4 - 12.0 fL [facility] NRBC 0.00 0.00 /100 WBCs [facility] ABSOLUTE NRBC 0.00 0.00 K/uL [facility] DIFF METHOD Auto [facility] NEUTS 59.6 48.0 - 76.0 % [facility] LYMPHS 28.0 18.0 - 41.0 % [facility] MONOS 10.3 4.0 - 11.0 % [facility] EOS 1.4 0.0 - 5.0 % [facility] BASOS 0.7 0.0 - 1.5 % [facility] Granulocytes, immature (%) 0.0 0.0 - 0.9 % [facility] ABSOLUTE NEUTS 2.62 1.92 - 7.60 K/uL [facility] ABSOLUTE LYMPHS 1.23 0.72 - 4.10 K/uL [facility] ABSOLUTE MONOS 0.45 0.16 - 1.10 K/uL [facility] ABSOLUTE EOS 0.06 0.00 - 0.50 K/uL [facility] ABSOLUTE BASOS 0.03 0.00 - 0.15 K/uL [facility] Granulocytes, immature 0.00 0.00 - 0.09 K/uL [facility] Blood 06/20/2025 11:2 9 AM EDT 06/20/2025 11:30 AM EDT us Iris Benitez MD LAB BLOOD ORDERABLES Chrissy layne Result [facility] [address] [place] [address] * (ABNORMAL) Basic metabolic panel (06/20/2025 11:29 AM EDT) SODIUM 129(L) 133 - 146 mmol/L [facility] CHLORIDE 91(L) 96 - 108 mmol/L [facility] POTASSIUM 4.6 3.3 - 5.1 mmol/L [facility] CO2 24 21 - 35 mmol/L [facility] BUN 18 6 - 19 mg/dL [facility] CREATININE 0.90 0.5 - 1.5 mg/dL [facility] GLUCOSE 95 70 - 99 mg/dL [facility] CALCIUM 9.2 8.4 - 10.3 mg/dL [facility] EGFR 65 >59 mL/min/1.7 3m2 [facility] Comment:Estimated glomerular filtration rate calculated using the CKD-EPI refit equation. ANION GAP 19 10 - 20 mmol/L [facility] Blood 06/20/2025 11:2 9 AM EDT 06/20/2025 11:30 AM EDT us Iris Benitez MD LAB BLOOD ORDERABLES Chrissy layne Result Performing Organization Address City/State/[facility] Co de Phone Number [address] [address] * Outside CT Imaging Report Only (05/29/2025 12:32 PM EDT) us Unknown Unknown MD IMG CT Edited Result - Final * Outside Imaging Report Only (05/06/2025 9:03 AM EDT) us Unknown Unknown MD IMG XR CHEST Edited Result - Final * Outside XR Imaging Report Only (04/23/2025 4:28 PM EDT) us Unknown Unknown MD IMG XR CHEST Edited Result - Final * TSH with reflex (04/09/2025 12:37 PM EDT) TSH 1.59 0.27 - 4.20 uIU/mL [facility] Blood 04/09/2025 12:3 7 PM EDT 04/09/2025 12:41 PM EDT us Stacey May MD, MPH LAB BLOOD ORDERABLES Final Result Performing Organization Address [facility] Co de Phone Number [address] [address] * DEXA SCAN (12/29/2023 4:50 PM EST) Historical Provider MD HEALTH MAINTENANCE Final Result * (ABNORMAL) Lipid panel (10/10/2020 9:08 AM EST) HDL 107 mg/dL [facility] Comment: Interpretation <40 mg/dL: Low HDL cholesterol (major risk factor for CHD) Greater than or equal to 60 mg/dL: High HDL cholesterol ( negative risk factor for CHD) HDL - cholesterol is affected by a number of factors, e.g. smoking, excerise, hormones, sex and age. CHOLESTEROL 219 0 - 240 mg/dL [facility] TRIGLYCERIDES 47 30 - 160 mg/dL [facility] LDL 103 50 - 129 mg/dL [facility] Comment: LDL levels in terms of risk for coronary heart disease: <100 mg/dL: Optimal 100-129 mg/dL: Near or above optimal 130-159 mg/dL: Borderline high 160-189 mg/dL: High >190 mg/dL: Very High CARDIAC RISK RATIO 2.0(L) 3.3 - 4.4 [facility] Blood 10/10/2020 9:08 AM EST 10/10/2020 9:11 AM EST Stacey May MD, MPH LAB BLOOD ORDERABLES Final Result [address] [address] from Last 3 Months or Most Recently Relevant to Health Maintenance Insurance MEDICARE PART A & B [employer] MEDEX SUPPLEMENT MEDICARE PART A & B [employer] MED[employer] SUPPLEMENT MEDICARE PART A & B [employer] MEDEX SUPPLEMENT MEDICARE PART A & B [employer] MEDEX SUPPLEMENT MEDICARE PART A & B [employer] [employer] MEDEX SUPPLEMENT MEDICARE PART A & B [employer] MEDEX SUPPLEMENT MEDICARE PART A & B [employer] MEDEX SUPPLEMENT MEDICARE PART A & B [employer] MEDEX SUPPLEMENT MEDICARE PART A & B [employer] MEDEX SUPPLEMENT Advance Directives For more information, please contact: [phone] (9AM - 5PM [place], Wednesday-Wednesday) Documents on File Type Date Recorded 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 MOLST 06/29/2025 2:25 PM Healthcare Proxy 06/10/2021 CAITLIN Boyd ARE PROXY Care Teams Lead Ios Developer Relationship Specialty Start Date End Date Stacey May MD, MPH [address] [place] [phone] [email or web address] PCP - General Family Medicine 10/03/19 Bridgette Zhao MD [address] [place] [address] Dr [place] [address] [place] [phone] Otolaryngology 12/08/21 Camille Arroyo MD [address] [place] [address] Dr [place] [address] [place] [phone] [email or web address] Endocrinology 12/08/21 Stacey May MD, MPH [address] [place] [phone] [email or web address] Insurance Assigned Provider 02/05/24 Additional Source Comments The information contained in this document represents components of the legal health record. It is not the complete legal health record.[facility]
== END 2025-07-18 11:50 | disposition home or self-care (01) ==
LOC: HO.HMGAL 11:48
PROVIDERS: PCP Family Medicine; Visit Provider Registered Nurse Emergency
DX: J30.89 Other allergic rhinitis (principal)
CPT/HCPCS: 95117; 95165

== ENCOUNTER 2025-09-17 09:00 | Outpatient (RCR) | payer MEDICARE, SELFPAY ==
[2025-08-17 08:56] VITALS: BP 110/75; PULSE 76; O2SAT 99
== END 2025-09-17 15:27 | disposition home or self-care (01) ==
LOC: HO.PT 09:00
PROVIDERS: PCP Family Medicine; Visit Provider Physician Assistant
DX: M47.812 Spondylosis without myelopathy or radiculopathy, cervical region (principal)
CPT/HCPCS: 97014; 97110; 97140; 97161